=== PATIENT | male | born 1945 | race Caucasian/White ===

== ENCOUNTER 2017-03-08 08:32 | Day surgery (SDC) | payer MEDICARE, OTHER ==
[~2017-03-08 08:32] MED LIST: ACETAMINOPHEN 325 MG TABLET PO PRN; ACETYLCHOLINE CHLORIDE 20 DROP KIT IO PRN; BUPIVACAINE HCL/PF 30 ML VIAL IJ PRN; CYCLOPENTOLATE HCL 20 DROP BTL RIGHTEYE PRN; DEXTROSE 5%-0.5 NORMAL SALINE 1,000 ML IV PRN; EPINEPHrine 1 MG/ML AMPUL IO PRN; HYALURONATE SODIUM 0.4 ML DISP.SYRIN IO PRN; HYALURONATE SODIUM 0.85 ML DISP.SYRIN IO PRN; LIDOCAINE HCL/PF 200 MG/5 ML AMPUL TP PRN; LIDOCAINE HCL/PF 5 ML VIAL IO PRN; NORMAL SALINE 3 ML BOX IV PRN; TETRACAINE HCL 150 DROP BTL OP PRN
[2017-03-08] MEDS: TROPICAMIDE 150 DROP BTL RIGHTEYE PRN ×3 (09:00→09:25)
[2017-03-08] MEDS: PHENYLEPHRINE HCL 50 DROP BTL RIGHTEYE PRN ×3 (09:00→09:25)
[2017-03-08 11:42] VITALS: BP 113/72
== END 2017-03-08 08:33 | disposition home or self-care (01) ==
LOC: AMB 08:32
PROVIDERS: ATTEND Ophthalmology
PROC: 08RJ3JZ Replacement of Right Lens with Synthetic Substitute, Percutaneous Approach (ICD-10-PCS; principal; 2017-03-08 10:00)
DX: H26.8 Other specified cataract (principal); G35 Multiple sclerosis; Z68.26 Body mass index [BMI] 26.0-26.9, adult

== ENCOUNTER 2017-03-22 09:27 | Day surgery (SDC) | payer MEDICARE, MEDICAID ==
[~2017-03-22 09:27] MED LIST changes: +CYCLOPENTOLATE HCL 20 DROP BTL LEFTEYE PRN; -CYCLOPENTOLATE HCL 20 DROP BTL RIGHTEYE PRN; -HYALURONATE SODIUM 0.85 ML DISP.SYRIN IO PRN
[2017-03-22] MEDS: TROPICAMIDE 150 DROP BTL LEFTEYE PRN ×3 (10:00→10:41)
[2017-03-22] MEDS: PHENYLEPHRINE HCL 50 DROP BTL LEFTEYE PRN ×3 (10:00→10:41)
[2017-03-22] MEDS ORDERED: DEXTROSE 5%-0.5 NORMAL SALINE 1,000 ML IV ONE (10:24)
[2017-03-22] MEDS: HYALURONATE SODIUM 0.85 ML DISP.SYRIN IO PRN ×2 (11:21→11:34)
[2017-03-22 12:53] VITALS: BP 130/86
== END 2017-03-22 09:28 | disposition home or self-care (01) ==
LOC: AMB 09:27
PROVIDERS: ATTEND Ophthalmology
PROC: 08RK3JZ Replacement of Left Lens with Synthetic Substitute, Percutaneous Approach (ICD-10-PCS; principal; 2017-03-22 10:45)
DX: H26.8 Other specified cataract (principal); G35 Multiple sclerosis; Z68.26 Body mass index [BMI] 26.0-26.9, adult

== ENCOUNTER 2018-04-14 15:09 | Observation (INO) ==
[2018-04-14 15:33] LABS: Hemoglobin 17.1 gm/dL (13.5-18.0); Mean Cell Volume 96.7 fl (78-100); Mean Corpuscular Hemoglobin 31.2 pg (27-31); Mean Corpuscular Hgb Conc 32.3 g/dl (32-36); Platelet Count 238 K/mm3 (150-450); Red Blood Count 5.48 M/mm3 (4.7-6.0); Red Cell Distribution Width 13.9 % (11.5-14.0); White Blood Count 29.7 K/mm3 (4.0-10.5)
[2018-04-14 15:40] LABS: Total Cells Counted 100
[2018-04-14 15:55] LABS: ALT 11 U/L (19-67); AST 20 U/L (0-48); Alkaline Phosphatase * 105 U/L (50-170); Anion Gap 12.4 mmol/L (6.8-13.8); Bilirubin, Total 1.2 mg/dL (0.0-1.1); Blood Urea Nitrogen 16 mg/dL (6-23); Ca. Corrected For Albumin 8.9 mg/dL (8.4-10.2); Calcium * 8.4 mg/dL (7.9-10.9); Carbon Dioxide 24.4 mmol/L (24-32.6); Chloride 102 mmol/L (97-106); Glucose * 114 mg/dL (70-110); Potassium 3.8 mmol/L (3.4-4.6); Sodium 135 mmol/L (132-142); Total Protein 7.5 gm/dL (6.2-8.2)
[2018-04-14 15:56] LABS: Troponin I Less than 0.017 ng/mL (0.00-0.10)
[2018-04-14 16:02] LABS: Lymphocyte 11 % (20-51); Monocyte 11 % (0-9); Neutrophil 78 % (42-75); Neutrophil # 23.2 K/mm3 (1.3-6.0); Platelet Estimate Increased (NORMAL)
[2018-04-14 16:03] LABS: Anisocytosis Trace
[2018-04-14] MEDS ORDERED: NORMAL SALINE 1,000 ML IV ONE (16:12)
[2018-04-14] MEDS ORDERED: DILTIAZEM HCL 5 MG/ML VIAL IV ONE (17:05)
--- NOTE | 2018-04-14 17:11 | ERNOTE ---
Dyspnea - Date Date of Service: 04/14/18 - General Presenting Symptoms: difficulty of breathing Time Seen by Provider: 04/14/18 16:10 Source: patient, EMS, RN notes reviewed, [place] [facility] records, old records Exam Limitations: no limitations - Immun/Allergies/Home Medications Immunizations: IMMUNIZATION HX Immunizations Up to Date Yes Allergies/Adverse Reactions: Allergies morphine Adverse Reaction (Mild, Verified 02/23/18 15:09) "TIME GOES SLOW", hallucinations Home Medications: HOME MEDICATIONS Acetaminophen [Tylenol] 650 mg PO BID PRN 03/02/17 [Last Taken 03/07/17] Aspirin [Aspirin Enteric Coated] 650 mg PO QID PRN 03/02/17 [Last Taken ] nystatin 100,000 unit/gram topical powder 1 applic TP TID PRN 10/27/17 [Last Taken Unknown] clonazepam 1 mg tablet 3 mg PO DAILY tab 12/07/17 [Last Taken Unknown] docusate sodium 100 mg tablet 100 mg PO DAILY 12/23/17 [Last Taken Unknown] bisacodyl 5 mg tablet,delayed release 5 mg PO DAILY PRN #7 tab 02/25/18 [Last Taken Unknown] Chlorhexidine Gluconate [Peridex 0.12%] 15 ml MM BID 04/14/18 [Last Taken Unknown] Ibuprofen 400 mg PO PRN PRN 04/14/18 [Last Taken Unknown] Ipratropium/Albuterol Sulfate [Iprat-Albut 0.5-3(2.5) mg/3 ml] 3 ml INHALATION PRN PRN 04/14/18 [Last Taken Unknown] guaiFENesin [Mucinex] 1,200 mg PO BID 04/14/18 [Last Taken Unknown] - History of Present Illness Narrative: Pan is a 72 year old male brought to the ED by ambulance from the [place] for breathing difficulty. He is reported to have been cyanotic upon EMS arrival. This has resolved. The patient reports that he has had a cough, and that a CXR was done this morning. Those results are not available. He also reports feeling like he might have a urinary tract infection. 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 Absent: fever, chills EYE: Present: no symptoms reported ENT: Absent: nose congestion, sore throat Respiratory: Present: cough. Absent: shortness of breath Cardiology: Absent: chest pain, syncope Gastrointestinal/Abdominal: Absent: vomiting, diarrhea, abdominal pain Genitourinary: Present: frequency, dysuria Musculoskeletal: Present: no symptoms reported Skin: Absent: rash, lesions Neurological: Absent: headache, dizziness/light-headedness Endocrine: Present: no symptoms reported Hematologic/Lymphatic: Absent: easy bruising, easy bleeding Psych: Present: no symptoms reported Medical History (Last Reviewed 04/14/18 @ 17:10 by Rima Blount NP) Hepatitis C, chronic (Chronic) Anxiety (Chronic) Constipation (Acute) Multiple sclerosis (Chronic) Onset Date: Unknown Hepatitis C Onset Date: Unknown Surgical History: Surgical History (Last Reviewed 04/14/18 @ 17:10 by Rima Blount NP) H/O rectal polypectomy Onset Date: ~2013 H/O total hip arthroplasty Onset Date: Unknown History of esophagogastroduodenoscopy (EGD) Onset Date: ~2013 History of tonsillectomy Onset Date: Unknown Unspecified joint replacement by other means Onset Date: Unknown Family History: Family History (Last Updated 04/14/18 @ 17:19 by Harsha Alvarez RN) Other No pertinent family history Social History: Preferred Language Guyanese Do you have any nondenominational or No cultural preference? Smoking Status Never smoker Abuse History No History of abuse Psych History No pertinent hx (Last Updated 02/23/18 @ 15:14 by ARAM Hale) No Social History Section defined Physical Exam - Physical Exam General Appearance: Present: wd/wn, alert, no apparent distress Head Exam: Present: normal inspection Eye Exam: Normal inspection: bilateral Ears, Nose, Throat: Present: normal ENT inspection, normal pharynx Neck: Present: normal inspection, nontender, supple Respiratory: Present: no respiratory distress, no accessory muscle use, lungs clear, decreased breath sounds - bilateral bases Cardiovascular/Chest: Present: no murmur, normal peripheral pulses, tachycardia, irregularly irregular Gastrointestinal/Abdominal: Present: nontender, nondistended, soft Extremity Exam: Present: normal inspection, non-tender Neurological Exam: Present: alert, oriented, normal mood/affect. Absent: no motor/sensory deficits - lower extremity weakness, chronic Skin Exam: Present: normal color, warm/dry Progress - Results and Orders Patient's Lab Results:: I have reviewed the patient's lab results. - Vital Signs Patient's Vital Signs:: I have reviewed the patient's vital signs. Vital Signs: Vital Signs 04/14/18 15:11 04/14/18 15:41 04/14/18 16:10 Temperature 37.3 C Pulse Rate 93 128 H 115 H Respiratory Rate 22 H 42 H 43 H Blood Pressure 99/75 117/82 O2 Sat by Pulse Oximetry 94 94 94 04/14/18 16:11 Temperature Pulse Rate 124 H Respiratory Rate Blood Pressure O2 Sat by Pulse Oximetry - EKG EKG: atrial fibrillation - with RVR - Progress/Reassessment Chief Complaint: Dyspnea Progress:: Improved Plan - Plan Plan: The patient's condition had apparently improved on arrival from what the EMS personnel had described initially. He has had no respiratory distress, but he was found to be in Afib with RVR. There is no prior record of him having Afib. He was given Cardizem 20 mg IVP for this. He remains in Afib but now has a rate in the 90's. He does have a UTI and is receiving IV Levaquin. His chest xray results are unclear due to its poor quality. His WBC is markedly elevated at 29,200 but he has a normal lactic acid. Dr. Perez was contacted and the patient will be admitted to observation status. Departure Clinical Impression: New onset atrial fibrillation UTI (urinary tract infection) Qualifiers: Urinary tract infection type: site unspecified Hematuria presence: without hematuria Qualified Code(s): N39.0 - Urinary tract infection, site not specified - Departure Disposition: Still a patient Condition: Stable
[2018-04-14 18:01] LABS: Urine Bilirubin Negative (NEGATIVE); Urine Blood 250 /ul (NEGATIVE); Urine Ketone 50 mg/dL (NEGATIVE); Urine Protein 100 mg/dL (NEGATIVE); Urine Urobilinogen Normal (NORMAL); Urine pH 8.5 pH (5.0-7.0)
[2018-04-14 18:28] LABS: Urine Appearance Cloudy (CLEAR); Urine Color Amber; Urine Nitrite Positive (NEGATIVE)
[2018-04-14 18:30] LABS: Urine Bacteria 4+
[2018-04-14] MEDS ORDERED: LEVOFLOXACIN IN DEXTROSE 5 % 750 MG/150 ML BAG IV ONE (19:34)
[2018-04-14] MEDS ORDERED: clonazePAM 1 MG TABLET PO SCH (23:45)
[2018-04-15 08:20] VITALS: BP 105/72
--- NOTE | 2018-04-15 12:07 | HP ---
Chief Complaint - Chief Complaint Date of Service: 04/15/18 Time of Service: 08:30 Chief Complaint: Shortness of breath History of Present Illness: Pan is a 72 yo male, resident of the long term. He has been having shortness of breath for the last several days. He was treated for presumed bronchitis with antibiotics. Today with worsening shortness of breath he presented to the [facility] ER and was found to be in atrial fibrillation which is new. There have been no other recent changes in health, medication, or diet. Medical History (Last Reviewed 04/21/18 @ 14:36 by ARAM Hale) Atrial fibrillation (Chronic) Hepatitis C, chronic (Chronic) Anxiety (Chronic) Constipation (Acute) Multiple sclerosis (Chronic) Onset Date: Unknown Lyme disease, unspecified Muscle weakness (generalized) Hepatitis C Onset Date: Unknown Surgical History: Surgical History (Last Reviewed 04/21/18 @ 14:36 by ARAM Hale) H/O rectal polypectomy Onset Date: ~2013 H/O total hip arthroplasty Onset Date: Unknown History of esophagogastroduodenoscopy (EGD) Onset Date: ~2013 History of tonsillectomy Onset Date: Unknown Unspecified joint replacement by other means Onset Date: Unknown Family History: Family History (Last Reviewed 04/21/18 @ 14:36 by ARAM Hale) Other No pertinent family history Social History: Patient Lives/Resources [facility] Utilized Occupation retired Preferred Language Kenyan Do you have any synagogue or No cultural preference? Smoking Status Never smoker Have you smoked in the past 12 No months Abuse History No History of abuse Psych History No pertinent hx (Last Updated 02/23/18 @ 15:14 by ARAM Hale) No Social History Section defined Review Of Systems (GEN) - Review of Systems Generalized/Overall Review: Absent: Weakness, Chills, Fever EENTM: Present: No Symptoms Reported Respiratory: Present: Cough, Shortness of Breath Cardiac: Present: Palpitations. Absent: Chest Pain, Edema Abdominal: Absent: Nausea, Vomiting Genitourinary: Present: No Symptoms Reported Musculoskeletal: Present: No Symptoms Reported Neurological: Present: No Symptoms Reported Skin: Present: No Symptoms Reported Immunizations: IMMUNIZATION HX Immunizations Up to Date Yes Allergies/Adverse Reactions: Allergies Allergy/AdvReac Type Severity Reaction Status Date / Time morphine AdvReac Mild "TIME GOES Verified 04/21/18 14:31 SLOW", hallucinations Home Medications: HOME MEDICATIONS Aspirin [Aspirin Enteric Coated] 650 mg PO QID PRN 03/02/17 [Last Taken 03/07/17] nystatin 100,000 unit/gram topical powder 1 applic TP TID PRN 10/27/17 [Last Taken Unknown] docusate sodium 100 mg tablet 100 mg PO DAILY 12/23/17 [Last Taken Unknown] bisacodyl 5 mg tablet,delayed release 5 mg PO DAILY PRN #7 tab 02/25/18 [Last Taken Unknown] Chlorhexidine Gluconate [Peridex 0.12%] 15 ml MM BID 04/14/18 [Last Taken Unknown] Ibuprofen 400 mg PO QID PRN 04/14/18 [Last Taken Unknown] Ipratropium/Albuterol Sulfate [Iprat-Albut 0.5-3(2.5) mg/3 ml] 3 ml INHALATION PRN PRN 04/14/18 [Last Taken Unknown] guaiFENesin [Mucinex] 1,200 mg PO BID 04/14/18 [Last Taken Unknown] clonazePAM [Klonopin] 3 mg PO HS tab 04/15/18 [Last Taken Unknown] acetaminophen 325 mg tablet 650 mg PO BID PRN tab 04/21/18 [Last Taken Unknown] Exam - Exam Vital Signs: Vital Signs - Last Taken Temp 37.4 C 04/15/18 09:08 Pulse 89 04/15/18 09:08 Resp 20 04/15/18 09:08 BP 105/72 04/15/18 09:08 Pulse Ox 91 L 04/15/18 09:08 Constitutional: Present: Alert, Oriented x3, Cooperative ENT Exam: Present: hearing grossly normal Eye Exam: bilateral eye: normal inspection Respiratory: Present: lungs clear, normal breath sounds Cardiovascular/Chest: Present: regular rate, rhythm, no murmur Abdomen: Present: Normal bowel sounds, soft, nontender, nondistended Skin Exam: Present: normal color, warm/dry, no cyanosis Lymphatic: Present: no adenopathy Appearance: Present: appropriate appearance, appropriate insight Eye contact: Present: cooperative, good eye contact, normal speech Diagnostic Studies: Abnormal Lab Results 04/14/18 04/14/18 04/14/18 Range/Units 15:25 15:25 17:51 WBC 29.7 H (4.0-10.5) K/mm3 Hct 53.0 H (42.0-52.0) % MCH 31.2 H (27-31) pg Neutrophils % (Manual) 78 H (42-75) % Lymphocytes % (Manual) 11 L (20-51) % Monocytes % (Manual) 11 H (0-9) % Neutrophils # (Manual) 23.2 H (1.3-6.0) K/mm3 Monocytes # (Manual) 3.3 H (0.0-1.0) k/mm3 Platelet Estimate Increased H (NORMAL) D-Dimer (0.19-0.49) ug/mL Random Glucose 114 H (70-110) mg/dL Total Bilirubin 1.2 H (0.0-1.1) mg/dL ALT 11 L (19-67) U/L Albumin 3.0 L (3.4-5.0) gm/dl Urine Protein 100 H (NEGATIVE) mg/dL Urine Blood 250 H (NEGATIVE) /ul Urine Nitrate Positive H (NEGATIVE) Prot Sulfosalicylic Acd 3+ H (0) mg/dL Ur Leukocyte Esterase 75 H (NEGATIVE) /ul Urine RBC 10-25 H (0-5) /hpf Urine WBC 5-10 H (0-5) /hpf Uric Acid Crystals Few - 1+ H (NONE) /hpf Urine Bacteria 4+ H (NONE) 04/14/18 Range/Units 18:09 WBC (4.0-10.5) K/mm3 Hct (42.0-52.0) % MCH (27-31) pg Neutrophils % (Manual) (42-75) % Lymphocytes % (Manual) (20-51) % Monocytes % (Manual) (0-9) % Neutrophils # (Manual) (1.3-6.0) K/mm3 Monocytes # (Manual) (0.0-1.0) k/mm3 Platelet Estimate (NORMAL) D-Dimer 0.50 H (0.19-0.49) ug/mL Random Glucose (70-110) mg/dL Total Bilirubin (0.0-1.1) mg/dL ALT (19-67) U/L Albumin (3.4-5.0) gm/dl Urine Protein (NEGATIVE) mg/dL Urine Blood (NEGATIVE) /ul Urine Nitrate (NEGATIVE) Prot Sulfosalicylic Acd (0) mg/dL Ur Leukocyte Esterase (NEGATIVE) /ul Urine RBC (0-5) /hpf Urine WBC (0-5) /hpf Uric Acid Crystals (NONE) /hpf Urine Bacteria (NONE) Microbiology 04/14/18 17:51 Urine Culture - Preliminary Urine,Clean Catch Gram Negative Bacilli Laboratory Results WBC 29.7 K/mm3 (4.0-10.5) H 04/14/18 15:25 RBC 5.48 M/mm3 (4.7-6.0) 04/14/18 15:25 Hgb 17.1 gm/dL (13.5-18.0) 04/14/18 15:25 Hct 53.0 % (42.0-52.0) H 04/14/18 15:25 MCV 96.7 fl (78-100) 04/14/18 15:25 MCH 31.2 pg (27-31) H 04/14/18 15:25 MCHC 32.3 g/dl (32-36) 04/14/18 15:25 RDW 13.9 % (11.5-14.0) 04/14/18 15:25 Plt Count 238 K/mm3 (150-450) 04/14/18 15:25 MPV 10.0 fl (8-11.3) 04/14/18 15:25 Neutrophils % (Manual) 78 % (42-75) H 04/14/18 15:25 Lymphocytes % (Manual) 11 % (20-51) L 04/14/18 15:25 Monocytes % (Manual) 11 % (0-9) H 04/14/18 15:25 Neutrophils # (Manual) 23.2 K/mm3 (1.3-6.0) H 04/14/18 15:25 Lymphocytes # (Manual) 3.3 k/mm3 (1.5-3.5) 04/14/18 15:25 Monocytes # (Manual) 3.3 k/mm3 (0.0-1.0) H 04/14/18 15:25 Platelet Estimate Increased (NORMAL) H 04/14/18 15:25 Anisocytosis Trace 04/14/18 15:25 D-Dimer 0.50 ug/mL (0.19-0.49) H 04/14/18 18:09 Sodium 135 mmol/L (132-142) 04/14/18 15:25 Plasma Sodium 135 mmol/L (130-142) 04/14/18 15:25 Potassium 3.8 mmol/L (3.4-4.6) 04/14/18 15:25 Chloride 102 mmol/L (97-106) 04/14/18 15:25 Carbon Dioxide 24.4 mmol/L (24-32.6) 04/14/18 15:25 Anion Gap 12.4 mmol/L (6.8-13.8) 04/14/18 15:25 BUN 16 mg/dL (6-23) 04/14/18 15:25 Creatinine 0.84 mg/dL (0.4-1.4) 04/14/18 15:25 Est GFR (Non-Af Amer) 96 mL/min (60-130) D 04/14/18 15:25 BUN/Creatinine Ratio 19.0 (9.0-21.6) 04/14/18 15:25 Random Glucose 114 mg/dL (70-110) H 04/14/18 15:25 Lactic Acid, Venous 1.3 mmol/L (0.4-2.0) 04/14/18 16:11 Calcium 8.4 mg/dL (7.9-10.9) 04/14/18 15:25 Calcium Adj for Albumin 8.9 mg/dL (8.4-10.2) 04/14/18 15:25 Total Bilirubin 1.2 mg/dL (0.0-1.1) H 04/14/18 15:25 AST 20 U/L (0-48) 04/14/18 15:25 ALT 11 U/L (19-67) L 04/14/18 15:25 Alkaline Phosphatase 105 U/L (50-170) 04/14/18 15:25 Troponin I Less than 0.017 ng/mL (0.00-0.10) 04/14/18 15:25 Total Protein 7.5 gm/dL (6.2-8.2) 04/14/18 15:25 Albumin 3.0 gm/dl (3.4-5.0) L 04/14/18 15:25 Urine Color Isatu 04/14/18 17:51 Urine Appearance Cloudy (CLEAR) 04/14/18 17:51 Urine pH 8.5 pH (5.0-7.0) 04/14/18 17:51 Ur Specific [place] 1.020 SP.GR. (1.005-1.030) 04/14/18 17:51 Urine Protein 100 mg/dL (NEGATIVE) H 04/14/18 17:51 Urine Glucose (UA) Negative mg/dL (NEGATIVE) 04/14/18 17:51 Urine Ketones 50 mg/dL (NEGATIVE) 04/14/18 17:51 Urine Blood 250 /ul (NEGATIVE) H 04/14/18 17:51 Urine Nitrate Positive (NEGATIVE) H 04/14/18 17:51 Urine Bilirubin Negative mg/dl (NEGATIVE) 04/14/18 17:51 Prot Sulfosalicylic Acd 3+ mg/dL (0) H 04/14/18 17:51 Urine Urobilinogen Normal EU/dl (NORMAL) 04/14/18 17:51 Ur Leukocyte Esterase 75 /ul (NEGATIVE) H 04/14/18 17:51 Urine RBC 10-25 /hpf (0-5) H 04/14/18 17:51 Urine WBC 5-10 /hpf (0-5) H 04/14/18 17:51 Ur Epithelial Cells None seen /hpf (0-5) 04/14/18 17:51 Uric Acid Crystals Few - 1+ /hpf (NONE) H 04/14/18 17:51 Urine Bacteria 4+ (NONE) H 04/14/18 17:51 Urine Culture Comments Culture to follow 04/14/18 17:51 Assessment/Plan - Narrative Narrative: Pan is a 72 yo male with atrial fibrillation causing shortness of breath. He may have had atrial fibrillation for the past several days. He is not a candidate for cardioversion. Since arriving to floor it appears that he may have converted to normal sinus rhythm. Will monitor on telemetry in observation. If remains in sinus rhythm will discharge to home. - Assessment/Plan (1) New onset atrial fibrillation Problem: Resolved
--- NOTE | 2018-04-15 12:34 | DS ---
(1) New onset atrial fibrillation Problem: Resolved (2) UTI (urinary tract infection) Problem: Acute Qualifiers: Urinary tract infection type: site unspecified Hematuria presence: without hematuria Qualified Code(s): N39.0 - Urinary tract infection, site not specified (3) Hepatitis C, chronic Problem: Chronic Qualifiers: Hepatic coma status: without hepatic coma Qualified Code(s): B18.2 - Chronic viral hepatitis C (4) Multiple sclerosis Problem: Chronic Description of Stay: Pan is a 72 yo male with MS who was admitted for new onset atrial fibrillation with RVR. He was given IV diltiazem in the ER which improved his heart rate and it remained normal. Following the administration of diltiazem he was admitted to observation to see if his heart rate would remain stable. It did and at approximately 0530 on 04/15/18 he converted to normal sinus rhythm. He feels well and has no current symptoms. Urine collected in the ER is growing gram negative rods. He was given a dose of levaquin in the ER. Will continue this for a total of 5 days. Procedures Performed: none Results and Findings: Pending Mircobiology Results 04/14/18 17:51 Urine,Clean Catch Urine Culture - Preliminary Gram Negative Bacilli Lab Pending Results 04/14/18 15:25: WBC 29.7 H, RBC 5.48, Hgb 17.1, Hct 53.0 H, MCV 96.7, MCH 31.2 H, MCHC 32.3, RDW 13.9, Plt Count 238, MPV 10.0, Neutrophils % (Manual) 78 H, Lymphocytes % (Manual) 11 L, Monocytes % (Manual) 11 H, Neutrophils # (Manual) 23.2 H, Lymphocytes # (Manual) 3.3, Monocytes # (Manual) 3.3 H, Platelet Estimate Increased H, Anisocytosis Trace 04/14/18 15:25: Sodium 135, Plasma Sodium 135, Potassium 3.8, Chloride 102, Carbon Dioxide 24.4, Anion Gap 12.4, BUN 16, Creatinine 0.84, Est GFR (Non-Af Amer) 96 D, BUN/Creatinine Ratio 19.0, Random Glucose 114 H, Calcium 8.4, Calcium Adj for Albumin 8.9, Total Bilirubin 1.2 H, AST 20, ALT 11 L, Alkaline Phosphatase 105, Troponin I Less than 0.017, Total Protein 7.5, Albumin 3.0 L 04/14/18 16:11: Lactic Acid, Venous 1.3 04/14/18 17:51: Urine Color Isatu, Urine Appearance Cloudy, Urine pH 8.5, Ur Specific [place] 1.020, Urine Protein 100 H, Urine Glucose (UA) Negative, Urine Ketones 50, Urine Blood 250 H, Urine Nitrate Positive H, Urine Bilirubin Negative, Prot Sulfosalicylic Acd 3+ H, Urine Urobilinogen Normal, Ur Leukocyte Esterase 75 H, Urine RBC 10-25 H, Urine WBC 5-10 H, Ur Epithelial Cells None seen, Uric Acid Crystals Few - 1+ H, Urine Bacteria 4+ H, Urine Culture Comments Culture to follow 04/14/18 18:09: D-Dimer 0.50 H Discharge Location: [facility] Disposition: Intermediate Care Facility ICF Condition: Good Level of Care: ICF Problem Oriented Discharge Instructions to Patient/Family: Atrial Fibrillation, [id number] Additional Patient Instructions (free text): Please call and fax discharge information to [facility]. Resume prior oxygen orders. Resume all prior orders. Prescriptions (Any new or edited meds): Levofloxacin [Levaquin] 500 mg PO DAILY #4 tablet Complete Home Medications List: Complete Home Medication List: Acetaminophen [Tylenol] 650 mg PO BID PRN 03/02/17 Aspirin [Aspirin Enteric Coated] 650 mg PO QID PRN 03/02/17 nystatin 100,000 unit/gram topical powder 1 applic TP TID PRN 10/27/17 clonazepam 1 mg tablet 3 mg PO DAILY tab 12/07/17 docusate sodium 100 mg tablet 100 mg PO DAILY 12/23/17 bisacodyl 5 mg tablet,delayed release 5 mg PO DAILY PRN #7 tab 02/25/18 Chlorhexidine Gluconate [Peridex 0.12%] 15 ml MM BID 04/14/18 Ibuprofen 400 mg PO QID PRN 04/14/18 Ipratropium/Albuterol Sulfate [Iprat-Albut 0.5-3(2.5) mg/3 ml] 3 ml INHALATION PRN PRN 04/14/18 guaiFENesin [Mucinex] 1,200 mg PO BID 04/14/18 Levofloxacin [Levaquin] 500 mg PO DAILY #4 tablet 04/15/18 clonazePAM [Klonopin] 3 mg PO HS tablet 04/15/18
== END 2018-04-15 13:50 ==
LOC: MS 15:09 → ER 15:09 → MS 20:27
PROVIDERS: ADMIT Family Medicine; ATTEND Family Medicine
CPT/HCPCS: 36415; 71010; 71045; 80053; 81001; 83605; 84484; 85025; 85379; 87040; 87077; 87081; 87086; 87186; 93005; 94760; 96365; 96366; 96375; 99285; G0378

== ENCOUNTER 2020-08-29 16:29 | Inpatient (IN) ==
--- NOTE | 2020-08-29 17:12 | ERNOTE ---
Medical Problem HPI - Narrative Date of Service: 08/29/20 - General Chief Complaint: Fever Time Seen by Provider: 08/29/20 16:59 Source: patient, EMS, RN notes reviewed Exam Limitations: clinical condition, dementia - Immun/Allergies/Home Medications Immunizations: IMMUNIZATION HX Immunizations Up to Date Yes History of Influenza Vaccine Yes Hx Pneumococcal Vaccination Yes Allergies/Adverse Reactions: Allergies morphine Adverse Reaction (Mild, Verified 08/29/20 16:42) "TIME GOES SLOW", hallucinations Home Medications: HOME MEDICATIONS Aspirin [Aspirin Enteric Coated] 650 mg PO QID PRN 03/02/17 [Last Taken 03/07/17] nystatin 100,000 unit/gram topical powder 1 applic TP TID PRN 10/27/17 [Last Taken Unknown] docusate sodium 100 mg tablet 100 mg PO DAILY 12/23/17 [Last Taken Unknown] bisacodyl 5 mg tablet,delayed release 5 mg PO DAILY PRN #7 tab 02/25/18 [Last Taken Unknown] Chlorhexidine Gluconate [Peridex 0.12%] 15 ml MM BID 04/14/18 [Last Taken Unknown] polyethylene glycol 3350 17 gram/dose oral powder 17 g PO DAILY #238 g 06/07/18 [Last Taken Unknown] amoxicillin 500 mg capsule 2,000 mg PO ONCE cap 07/08/18 [Last Taken Unknown] fluticasone furoate 100 mcg-vilanterol 25 mcg/dose inhalation powder 1 inh IH DAILY #28 ea 01/12/19 [Last Taken Unknown] ipratropium 20 mcg-albuterol 100 mcg/actuation mist for inhalation 1 puff IH QID PRN g 03/17/19 [Last Taken Unknown] cholecalciferol (vitamin D3) 125 mcg (5,000 unit) capsule 125 mcg PO DAILY #30 cap 08/25/19 [Last Taken Unknown] gabapentin 400 mg capsule 400 mg PO HS #30 cap 12/06/19 [Last Taken Unknown] meloxicam 7.5 mg tablet 7.5 mg PO DAILY #30 tab 06/20/20 [Last Taken Unknown] atorvastatin 20 mg tablet 20 mg PO HS #30 tab 07/03/20 [Last Taken Unknown] metoprolol succinate 25 mg tablet,extended release 24 hr 25 mg PO DAILY #30 tab 07/03/20 [Last Taken Unknown] acetaminophen 325 mg tablet 650 mg PO BID #120 tab 07/04/20 [Last Taken Unknown] clonazepam 1 mg tablet 3 mg PO HS #90 tab 07/25/20 [Last Taken Unknown] modafinil 100 mg tablet 100 mg PO DAILY #1 tab 07/29/20 [Last Taken Unknown] cyanocobalamin (vitamin B-12) 1,000 mcg tablet 1,000 mcg PO DAILY #1 tab 08/15/20 [Last Taken Unknown] Aspirin 625 mg PO HS 08/30/20 [Last Taken Unknown] Cholecalciferol (Vitamin D3) [Vitamin D3] 125 mcg PO DAILY 08/30/20 [Last Taken Unknown] - History of Present History Narrative: Pan is a 75 yo male patient with hx of MS, COPD w/asthma who has been brought in to the ER by EMS from [facility] for concerns that he is febrile and more lethargic than his normal self and has c/o abdominal pain. Reported negative covid rapid test prior to leaving the facility today. Pt. also has hx of Chronic Hepatitis C infection. He states he feels achiness in his arms and legs and feeling very tired. Pt. denies abdominal pain, chest pain, MCLAIN, N/V/D. States is he is a total assist and incontinent of stool and urine r/t his MS. Patient also states that it is difficult for him to urinate well. Date (Duration): 08/29/20 Time (Timing): 08:00 Timing: getting worse Severity: moderate Modifying Factors - (Improves): Present: other - unknown Modifying Factors - (Worsens): Present: other - unknown. Review of Systems - Review of Systems Constitutional: Present: See HPI, fever, fatigue, decreased activity level. Absent: recent illness EYE: Absent: vision changes ENT: Absent: sore throat Respiratory: Present: wheezing. Absent: shortness of breath - COPD, cough Cardiology: Present: edema. Absent: chest pain Gastrointestinal/Abdominal: Present: other - Hx Hep C. Absent: nausea, vomiting, diarrhea, abdominal pain Genitourinary: Present: dysuria, other - states he has trouble urinating. Musculoskeletal: Present: other - weakness, MS Skin: Absent: rash, lesions, change in color Neurological: Present: anxiety Endocrine: Present: See HPI. Absent: excessive sweating Hematologic/Lymphatic: Absent: easy bruising, easy bleeding Psych: Present: anxiety, depressed, other Medical History (Last Reviewed 08/29/20 @ 21:42 by Cathy Pereyra RN) Ascending aortic aneurysm (Acute) Onset Date: ~06/2020 To be monitored annually-Due in June 2021. Vitamin D deficiency (Chronic) COPD with asthma (Acute) Wheezing on auscultation (Acute) Hammer toes, bilateral (Chronic) Toe pain, bilateral (Acute) Toenail avulsion (Acute) left third toenail Extremity cyanosis (Chronic) bilateral feet Bilateral lower extremity edema (Chronic) Onychomycosis (Chronic) New onset atrial fibrillation (Resolved) UTI (urinary tract infection) (Acute) Atrial fibrillation (Chronic) Hepatitis C, chronic (Chronic) Anxiety (Chronic) Constipation (Chronic) Multiple sclerosis (Chronic) Onset Date: Unknown Lyme disease, unspecified Muscle weakness (generalized) Hepatitis C Onset Date: Unknown Surgical History: Surgical History (Last Reviewed 08/29/20 @ 21:43 by Cathy Pereyra RN) H/O rectal polypectomy Onset Date: ~2013 H/O total hip arthroplasty Onset Date: Unknown History of esophagogastroduodenoscopy (EGD) Onset Date: ~2013 History of tonsillectomy Onset Date: Unknown Unspecified joint replacement by other means Onset Date: Unknown Family History: Family History (Last Reviewed 08/29/20 @ 21:43 by Cathy Pereyra RN) No pertinent family history Social History: (Last Updated 08/29/20 @ 21:45 by Cathy Pereyra RN) Social History: shelter: Yes Marital status: / Highest level of school completed/degree received: Associate degree: academi Tobacco: Smoking Status: Former smoker Physical Exam - Physical Exam General Appearance: Present: wd/wn, alert, no apparent distress. Absent: anxious, lethargic Head Exam: Present: normal inspection, no evidence of injury. Absent: no tenderness w palpation Eye Exam: Normal inspection: bilateral, PERRL: bilateral Ears, Nose, Throat: Present: normal ENT inspection, normal pharynx, dry mucous membranes Neck: Present: normal inspection, nontender, supple, full range of motion Respiratory: Present: no respiratory distress, no accessory muscle use, chest nontender, other - coarse Right lobes x3, Diminished bases A/P Cardiovascular/Chest: Present: normal peripheral pulses, other - A-Fib 120's Peripheral Pulses: N=norm/S=strong/W=weak/B=bound/A=absent: Carotid (R): Normal, Carotid (L): Normal, Radial (R): Normal, Radial (L): Normal, Dorsalis-pedis (R): Weak, Dorsalis-pedis (L): Weak Gastrointestinal/Abdominal: Present: normal bowel sounds, nontender, nondisten ded, soft Rectal Exam: Absent: mass Male Genitals Exam: Present: normal genitalia, other - noted small amount blood at meatus when nursing staff went to catheterize patient for UA and catheter placement. 600mL cloudy orange urine drained at time of UA sample Back Exam: Present: normal inspection, no CVA tenderness Extremity Exam: Present: extremity edema - generalized 2+ non-pitting edema to bilateral lower legs. Absent: joint redness, joint swelling Neurological Exam: Present: alert, motor weakness, disoriented to time Skin Exam: Present: normal color, warm/dry. Absent: jaundice, skin rash Progress - Date and Time Seen: Date and Time: 08/29/20 18:30 Patient less talkative, denies any pain at this time. BP systolic reported 70 per nursing staff s/p straight cath UA specimen that was clotty and orange in color. HR 107, MAP 77 (94/66), SpO2 94%, RR 15. IVF increased to 500/hr. - Results and Orders Patient's Lab Results:: I have reviewed the patient's lab results. - Vital Signs Patient's Vital Signs:: I have reviewed the patient's vital signs. Vital Signs: Vital Signs 08/29/20 16:39 Temperature 38 C Pulse Rate 127 H Respiratory Rate 20 Blood Pressure 123/79 O2 Sat by Pulse Oximetry 92 L - EKG EKG #1 EKG: atrial fibrillation - with rapid ventricular response EKG read: Reviewed by me - X-Ray X-Ray #1 X-Ray: chest Interpretation: Reviewed by me - Progress/Reassessment Chief Complaint: Fever Progress:: Re-examined - 1900 MAP 74, SpO2 95%, HR 105, 20RR, IVF @ 500mL/Hr 1940 Patient lungs improved with increased air movement and lung sounds A/P/L bilaterally Plan - Plan Plan: DDx: Sepsis/SIRS, Pneumonia, COPD Exacerbation, Pyelonephritis. Patient presentation demonstrates decreased interaction during ER stay with Fever and UTI and per reports of care facility staff that is reflective of his WBC 37.7, BNP 1135, CRP 6.5, Pro-Calcitonin 2.4. NS fluid bolus 1 liter per EMS and 2nd liter at 250mL to 500mL to a total volume to be infused of at least 2,430mL for sepsis protocol. Ceftriaxone 1gm ordered for pulmonary or urinary source. 192 Patient MAP 70-80 w/IVF at 250mL. 1929 Dr. Dawson accepted for admission 2100 Covid results returned negative, Sepsis IVF bolus infused and returned to maintenance rate 126/hr. Admission orders completed with repeat doses of ceftriaxone 1 gm every 24hours placed per request of Dr. Dawson and Sepsis Reassessment completed. Departure Clinical Impression: Sepsis associated hypotension, Urinary retention UTI (urinary tract infection) Qualifiers: Urinary tract infection type: site unspecified Hematuria presence: with hematuria Qualified Code(s): N39.0 - Urinary tract infection, site not specified - Departure Disposition: Still a patient Condition: Stable Sepsis Reassessment Note Time:: 21:00 - Patient HR 70's, no distress, Oriented to person & place. Narrative: Last Vital Signs Temp 38 C 08/29/20 16:42 Pulse 127 H 08/29/20 16:42 Resp 20 08/29/20 16:42 BP 123/79 08/29/20 16:42 Pulse Ox 92 L 08/29/20 16:42 Vitals reviewed: Yes - MAP 70 at 2100 Heart Sounds: S1 & S2, Irregular Breath Sounds: Clear - bilaterally, improved from arrival to ER, Diminished Peripheral Pulse: Radial Peripheral Pulse Strength: Normal Additional Peripheral Pulse: Pedal Additional Peripheral Pulse Strength: Weak Capillary Refill: < 3 seconds Skin Color/Condition: Dry, Cool, Pale
[2020-08-29] MEDS: NORMAL SALINE 1,000 ML IV SCH ×2 (17:15→23:48)
[2020-08-29 17:50] LABS: Hematocrit 47.7 % (42.0-52.0); Mean Cell Volume 102.1 fl (78-100); Mean Corpuscular Hemoglobin 32.1 pg (27-31); Mean Corpuscular Hgb Conc 31.4 g/dl (32-36); Mean Platelet Volume 10.3 fl (8-11.3); Platelet Count 186 K/mm3 (150-450); Red Blood Count 4.67 M/mm3 (4.7-6.0); Red Cell Distribution Width 13.8 % (11.5-14.0); White Blood Count 32.7 K/mm3 (4.0-10.5)
[2020-08-29 17:56] LABS: Total Cells Counted 100
[2020-08-29 18:11] LABS: Albumin * 3.1 gm/dl (3.4-5.0); Anion Gap 13.5 mmol/L (6.8-13.8); BUN/Creatinine Ratio 19.3 (9.0-21.6); Bilirubin, Total 0.6 mg/dL (0.0-1.1); CRP 6.5 mg/dL (0.0-0.9); Ca. Corrected For Albumin 8.8 mg/dL (8.4-10.2); Calcium * 8.4 mg/dL (7.9-10.9); Carbon Dioxide 29.3 mmol/L (24-32.6); Potassium 3.8 mmol/L (3.4-4.6); Total Protein 6.6 gm/dL (6.2-8.2)
[2020-08-29] MEDS ORDERED: cefTRIAXone SODIUM 1,000 MG/100 ML BAG IV ONE (18:33)
[2020-08-29 18:37] LABS: Anisocytosis Trace; Band 25 % (0-2.0); Eosinophil 1 % (0-3); Lymphocyte 3 % (20-51); Monocyte 1 % (0-9); Neutrophil 70 % (42-75); Neutrophil # 22.9 K/mm3 (1.3-6.0); Platelet Estimate Normal (NORMAL)
[2020-08-29] MEDS ORDERED: NORMAL SALINE 1,000 ML IV SCH (19:24)
[2020-08-29 19:54] LABS: Urine Bilirubin Negative (NEGATIVE); Urine Ketone 5 mg/dL (NEGATIVE); Urine Nitrite Negative (NEGATIVE); Urine Protein Negative (NEGATIVE); Urine Urobilinogen Normal (NORMAL)
[2020-08-29 20:09] LABS: Urine Appearance Cloudy (CLEAR); Urine Bacteria 4+; Urine Blood 5 /ul (NEGATIVE); Urine Color Yellow; Urine RBC 0-5 /hpf (0-5); Urine WBC 0-5 /hpf (0-5)
[2020-08-29] MEDS: NORMAL SALINE 1,000 ML IV PRN (21:00)
[2020-08-30] MEDS: NORMAL SALINE 1,000 ML IV PRN (02:16)
[2020-08-30] MEDS: ACETAMINOPHEN 500 MG TABLET PO PRN (05:08)
[2020-08-30] MEDS: METOPROLOL SUCCINATE 25 MG TABLET.SA PO SCH ×2 (06:20→08:11)
[2020-08-30 06:48] LABS: Hematocrit 43.7 % (42.0-52.0); Hemoglobin 13.7 gm/dL (13.5-18.0); Mean Cell Volume 101.4 fl (78-100); Mean Corpuscular Hemoglobin 31.8 pg (27-31); Mean Corpuscular Hgb Conc 31.4 g/dl (32-36); Mean Platelet Volume 10.5 fl (8-11.3); Neutrophil # 15.8 K/mm3 (1.3-6.0); Neutrophil % 88.9 % (42-75.0); Platelet Count 162 K/mm3 (150-450); Red Blood Count 4.31 M/mm3 (4.7-6.0); White Blood Count 17.7 K/mm3 (4.0-10.5)
[2020-08-30 06:53] LABS: Albumin * 2.7 gm/dl (3.4-5.0); Anion Gap 11.3 mmol/L (6.8-13.8); BUN/Creatinine Ratio 19.7 (9.0-21.6); Bilirubin, Total 0.5 mg/dL (0.0-1.1); Calcium * 7.3 mg/dL (7.9-10.9); Carbon Dioxide 26.4 mmol/L (24-32.6); Potassium 3.7 mmol/L (3.4-4.6); Total Protein 6.1 gm/dL (6.2-8.2)
[2020-08-30] MEDS ORDERED: NYSTATIN 15 APPL BTL TP PRN (08:11)
[2020-08-30] MEDS ORDERED: ALBUTEROL SULFATE/IPRATROPIUM 3 ML NEBU IH PRN (08:34)
--- NOTE | 2020-08-30 09:44 | HP ---
Chief Complaint - Chief Complaint Date of Service: 08/30/20 Time of Service: 08:17 Chief Complaint: Fever History of Present Illness: 75-year-old male with a past medical history of anxiety, atrial fibrillation, constipation, COPD with asthma, hepatitis C, Lyme disease, multiple sclerosis, UTI presents from the [facility] with complaints of fever and worsening weakness. In the ER, the patient was found to have a fever of 39.1, tachycardia of 127, tachypnea of 24 and normal blood pressure. Labs showed a leukocytosis of 32.7 with 25 bands, procalcitonin 2.40, positive UA, chest x-ray showed stable chronic changes, no acute disease. In the ER he was also complaining of difficulty urinating so a Warner catheter was placed and collected 600 cc of urine. He received a dose of ceftriaxone in the emergency room. He i s incontinent of stool and urine at baseline. He does not ambulate and is a total assist. He was admitted for management of UTI. Medical History (Last Reviewed 08/29/20 @ 21:42 by Cathy Pereyra RN) Ascending aortic aneurysm (Acute) Onset Date: ~06/2020 To be monitored annually-Due in June 2021. Vitamin D deficiency (Chronic) COPD with asthma (Chronic) Wheezing on auscultation (Acute) Hammer toes, bilateral (Chronic) Toe pain, bilateral (Acute) Toenail avulsion (Acute) left third toenail Extremity cyanosis (Chronic) bilateral feet Bilateral lower extremity edema (Chronic) Onychomycosis (Chronic) New onset atrial fibrillation (Resolved) UTI (urinary tract infection) (Acute) Atrial fibrillation (Chronic) Hepatitis C, chronic (Chronic) Anxiety (Chronic) Constipation (Chronic) Multiple sclerosis (Chronic) Onset Date: Unknown Lyme disease, unspecified Muscle weakness (generalized) Hepatitis C Onset Date: Unknown Surgical History: Surgical History (Last Reviewed 08/29/20 @ 21:43 by Cathy Pereyra RN) H/O rectal polypectomy Onset Date: ~2013 H/O total hip arthroplasty Onset Date: Unknown History of esophagogastroduodenoscopy (EGD) Onset Date: ~2013 History of tonsillectomy Onset Date: Unknown Unspecified joint replacement by other means Onset Date: Unknown Family History: Family History (Last Reviewed 08/29/20 @ 21:43 by Cathy Pereyra RN) Other No pertinent family history Social History: (Last Updated 08/29/20 @ 21:45 by Cathy Pereyra RN) Social History: mcfp: Yes Marital status: / Highest level of school completed/degree received: Associate degree: mirtha Tobacco: Smoking Status: Former smoker Review Of Systems (GEN) - Review of Systems Generalized/Overall Review: Present: Chills, Fever Respiratory: Absent: Shortness of Breath Cardiac: Absent: Chest Pain Abdominal: Absent: Abdominal Pain Misc: All systems neg except as marked Immunizations: IMMUNIZATION HX Immunizations Up to Date Yes History of Influenza Vaccine Yes Hx Pneumococcal Vaccination Yes Allergies/Adverse Reactions: Allergies Allergy/AdvReac Type Severity Reaction Status Date / Time morphine AdvReac Mild "TIME GOES Verified 08/29/20 16:42 SLOW", hallucinations Home Medications: HOME MEDICATIONS Aspirin [Aspirin Enteric Coated] 650 mg PO QID PRN 03/02/17 [Last Taken 03/07/17] nystatin 100,000 unit/gram topical powder 1 applic TP TID PRN 10/27/17 [Last Taken Unknown] docusate sodium 100 mg tablet 100 mg PO DAILY 12/23/17 [Last Taken Unknown] bisacodyl 5 mg tablet,delayed release 5 mg PO DAILY PRN #7 tab 02/25/18 [Last Taken Unknown] Chlorhexidine Gluconate [Peridex 0.12%] 15 ml MM BID 04/14/18 [Last Taken Unknown] polyethylene glycol 3350 17 gram/dose oral powder 17 g PO DAILY #238 g 06/07/18 [Last Taken Unknown] amoxicillin 500 mg capsule 2,000 mg PO ONCE cap 07/08/18 [Last Taken Unknown] fluticasone furoate 100 mcg-vilanterol 25 mcg/dose inhalation powder 1 inh IH DAILY #28 ea 01/12/19 [Last Taken Unknown] ipratropium 20 mcg-albuterol 100 mcg/actuation mist for inhalation 1 puff IH QID PRN g 03/17/19 [Last Taken Unknown] cholecalciferol (vitamin D3) 125 mcg (5,000 unit) capsule 125 mcg PO DAILY #30 cap 08/25/19 [Last Taken Unknown] gabapentin 400 mg capsule 400 mg PO HS #30 cap 12/06/19 [Last Taken Unknown] meloxicam 7.5 mg tablet 7.5 mg PO DAILY #30 tab 03/11/21 [Last Taken Unknown] atorvastatin 20 mg tablet 20 mg PO HS #30 tab 07/03/20 [Last Taken Unknown] metoprolol succinate 25 mg tablet,extended release 24 hr 25 mg PO DAILY #30 tab 07/03/20 [Last Taken Unknown] acetaminophen 325 mg tablet 650 mg PO BID #120 tab 07/04/20 [Last Taken Unknown] clonazepam 1 mg tablet 3 mg PO HS #90 tab 07/25/20 [Last Taken Unknown] modafinil 100 mg tablet 100 mg PO DAILY #1 tab 07/29/20 [Last Taken Unknown] cyanocobalamin (vitamin B-12) 1,000 mcg tablet 1,000 mcg PO DAILY #1 tab 08/15/20 [Last Taken Unknown] Aspirin 625 mg PO HS 08/30/20 [Last Taken Unknown] Cholecalciferol (Vitamin D3) [Vitamin D3] 125 mcg PO DAILY 08/30/20 [Last Taken Unknown] Exam - Exam Vital Signs: Vital Signs - Last Taken Temp 36.7 C 08/30/20 08:15 Pulse 110 H 08/30/20 08:15 Resp 20 08/30/20 08:15 BP 115/74 08/30/20 08:15 Pulse Ox 95 08/30/20 08:15 Constitutional: Present: Alert, Cooperative, Well developed, Well nourished, No distress ENT Exam: Present: hearing grossly normal, moist mucous membranes Eye Exam: bilateral eye: normal inspection, EOMI, left eye: abnormal EOM Neck: Present: non-tender, supple. Absent: lymphadenopathy (R), lymphadenopathy (L) Respiratory: Present: lungs clear, no respiratory distress, no accessory muscle use, No wheezing. Absent: crackles, rhonchi Cardiovascular/Chest: Present: normal peripheral pulses, no murmur, tachycardia, gallop/S3, edema - 1+ pitting left lower extremity Peripheral Pulses: dorsalis-pedis (R): 1+, dorsalis-pedis (L): 1+ Abdomen: Present: Normal bowel sounds, soft, nontender Extremity: Present: pedal edema - 1+ pitting left lower extremity Skin Exam: Present: normal color, warm/dry Neurologic: Present: alert, normal mood/affect Appearance: Present: appropriate appearance, appropriate insight Eye contact: Present: cooperative Thoughts: Present: normal mood /affect Diagnostic Studies: Abnormal Lab Results 08/29/20 08/29/20 08/29/20 Range/Units 17:43 17:43 17:43 WBC 32.7 H (4.0-10.5) K/mm3 RBC 4.67 L (4.7-6.0) M/mm3 MCV 102.1 H (78-100) fl MCH 32.1 H (27-31) pg MCHC 31.4 L (32-36) g/dl Immature Gran % (Auto) (0.001-0.429) % Immature Gran # (Auto) (0.000-0.0310) K/mm3 Neutrophils % (42-75.0) % Band Neuts % (Manual) 25 H (0-2.0) % Lymphocytes % (20-51) % Lymphocytes % (Manual) 3 L (20-51) % Neutrophils # (1.3-6.0) K/mm3 Neutrophils # (Manual) 22.9 H (1.3-6.0) K/mm3 Lymphocytes # (1.5-3.5) k/mm3 Lymphocytes # (Manual) 1.0 L (1.5-3.5) k/mm3 D-Dimer (0.19-0.49) ugFEU/mL Chloride (97-106) mmol/L Random Glucose (70-110) mg/dL Calcium (7.9-10.9) mg/dL Calcium Adj for Albumin (8.4-10.2) mg/dL C-Reactive Prot, Quant 6.5 H (0.0-0.9) mg/dL B-Natriuretic Peptide 1135 H (5-350) pg/mL Total Protein (6.2-8.2) gm/dL Albumin 3.1 L (3.4-5.0) gm/dl Lipase 48 L (73-393) U/L Procalcitonin 2.40 H (0.05-0.50) ng/mL Urine Blood (NEGATIVE) /ul Ur Leukocyte Esterase (NEGATIVE) /ul Urine Bacteria (NONE) 08/29/20 08/29/20 08/30/20 Range/Units 17:43 18:29 06:18 WBC 17.7 H D (4.0-10.5) K/mm3 RBC 4.31 L (4.7-6.0) M/mm3 MCV 101.4 H (78-100) fl MCH 31.8 H (27-31) pg MCHC 31.4 L (32-36) g/dl Immature Gran % (Auto) 0.80 H (0.001-0.429) % Immature Gran # (Auto) 0.14 H (0.000-0.0310) K/mm3 Neutrophils % 88.9 H (42-75.0) % Band Neuts % (Manual) (0-2.0) % Lymphocytes % 4.3 L (20-51) % Lymphocytes % (Manual) (20-51) % Neutrophils # 15.8 H (1.3-6.0) K/mm3 Neutrophils # (Manual) (1.3-6.0) K/mm3 Lymphocytes # 0.76 L (1.5-3.5) k/mm3 Lymphocytes # (Manual) (1.5-3.5) k/mm3 D-Dimer 0.80 H (0.19-0.49) ugFEU/mL Chloride (97-106) mmol/L Random Glucose (70-110) mg/dL Calcium (7.9-10.9) mg/dL Calcium Adj for Albumin (8.4-10.2) mg/dL C-Reactive Prot, Quant (0.0-0.9) mg/dL B-Natriuretic Peptide (5-350) pg/mL Total Protein (6.2-8.2) gm/dL Albumin (3.4-5.0) gm/dl Lipase (73-393) U/L Procalcitonin (0.05-0.50) ng/mL Urine Blood 5 H (NEGATIVE) /ul Ur Leukocyte Esterase 25 H (NEGATIVE) /ul Urine Bacteria 4+ H (NONE) 08/30/20 Range/Units 06:18 WBC (4.0-10.5) K/mm3 RBC (4.7-6.0) M/mm3 MCV (78-100) fl MCH (27-31) pg MCHC (32-36) g/dl Immature Gran % (Auto) (0.001-0.429) % Immature Gran # (Auto) (0.000-0.0310) K/mm3 Neutrophils % (42-75.0) % Band Neuts % (Manual) (0-2.0) % Lymphocytes % (20-51) % Lymphocytes % (Manual) (20-51) % Neutrophils # (1.3-6.0) K/mm3 Neutrophils # (Manual) (1.3-6.0) K/mm3 Lymphocytes # (1.5-3.5) k/mm3 Lymphocytes # (Manual) (1.5-3.5) k/mm3 D-Dimer (0.19-0.49) ugFEU/mL Chloride 107 H (97-106) mmol/L Random Glucose 116 H (70-110) mg/dL Calcium 7.3 L (7.9-10.9) mg/dL Calcium Adj for Albumin 8.0 L (8.4-10.2) mg/dL C-Reactive Prot, Quant (0.0-0.9) mg/dL B-Natriuretic Peptide (5-350) pg/mL Total Protein 6.1 L (6.2-8.2) gm/dL Albumin 2.7 L (3.4-5.0) gm/dl Lipase (73-393) U/L Procalcitonin (0.05-0.50) ng/mL Urine Blood (NEGATIVE) /ul Ur Leukocyte Esterase (NEGATIVE) /ul Urine Bacteria (NONE) Microbiology 08/29/20 18:45 Urine Culture - Preliminary Urine,Catheterized No Growth Laboratory Results WBC 17.7 K/mm3 (4.0-10.5) H D 08/30/20 06:18 RBC 4.31 M/mm3 (4.7-6.0) L 08/30/20 06:18 Hgb 13.7 gm/dL (13.5-18.0) 08/30/20 06:18 Hct 43.7 % (42.0-52.0) 08/30/20 06:18 MCV 101.4 fl (78-100) H 08/30/20 06:18 MCH 31.8 pg (27-31) H 08/30/20 06:18 MCHC 31.4 g/dl (32-36) L 08/30/20 06:18 RDW 14.0 % (11.5-14.0) 08/30/20 06:18 Plt Count 162 K/mm3 (150-450) 08/30/20 06:18 MPV 10.5 fl (8-11.3) 08/30/20 06:18 Immature Gran % (Auto) 0.80 % (0.001-0.429) H 08/30/20 06:18 Immature Gran # (Auto) 0.14 K/mm3 (0.000-0.0310) H 08/30/20 06:18 Neutrophils % 88.9 % (42-75.0) H 08/30/20 06:18 Neutrophils % (Manual) 70 % (42-75) 08/29/20 17:43 Band Neuts % (Manual) 25 % (0-2.0) H 08/29/20 17:43 Lymphocytes % 4.3 % (20-51) L 08/30/20 06:18 Lymphocytes % (Manual) 3 % (20-51) L 08/29/20 17:43 Monocytes % 5.6 % (0.0-9) 08/30/20 06:18 Monocytes % (Manual) 1 % (0-9) 08/29/20 17:43 Eosinophils % 0.2 % (0.0-3.0) 08/30/20 06:18 Eosinophils % (Manual) 1 % (0-3) 08/29/20 17:43 Basophils % 0.2 % (0.0-1.0) 08/30/20 06:18 Nucleated RBC % 0.0 k/mm3 (0-1) 08/30/20 06:18 Neutrophils # 15.8 K/mm3 (1.3-6.0) H 08/30/20 06:18 Neutrophils # (Manual) 22.9 K/mm3 (1.3-6.0) H 08/29/20 17:43 Lymphocytes # 0.76 k/mm3 (1.5-3.5) L 08/30/20 06:18 Lymphocytes # (Manual) 1.0 k/mm3 (1.5-3.5) L 08/29/20 17:43 Monocytes # 1.0 k/mm3 (0.0-1.0) 08/30/20 06:18 Monocytes # (Manual) 0.3 k/mm3 (0.0-1.0) 08/29/20 17:43 Eosinophils # 0.0 k/mm3 (0.0-0.7) 08/30/20 06:18 Eosinophils # (Manual) 0.3 k/mm3 (0.0-0.7) 08/29/20 17:43 Absolute Basophils 0.0 k/mm3 (0.0-0.1) 08/30/20 06:18 Toxic Vacuolation Trace 08/29/20 17:43 Platelet Estimate Normal (NORMAL) 08/29/20 17:43 Anisocytosis Trace 08/29/20 17:43 D-Dimer 0.80 ugFEU/mL (0.19-0.49) H 08/29/20 17:43 Sodium 141 mmol/L (132-142) 08/30/20 06:18 Plasma Sodium 141 mmol/L (130-142) 08/30/20 06:18 Potassium 3.7 mmol/L (3.4-4.6) 08/30/20 06:18 Chloride 107 mmol/L (97-106) H 08/30/20 06:18 Carbon Dioxide 26.4 mmol/L (24-32.6) 08/30/20 06:18 Anion Gap 11.3 mmol/L (6.8-13.8) 08/30/20 06:18 BUN 14 mg/dL (6-23) 08/30/20 06:18 Creatinine 0.71 mg/dL (0.4-1.4) 08/30/20 06:18 Est GFR (Non-Af Amer) 116 mL/min (60-130) 08/30/20 06:18 BUN/Creatinine Ratio 19.7 (9.0-21.6) 08/30/20 06:18 Random Glucose 116 mg/dL (70-110) H 08/30/20 06:18 Lactic Acid, Venous 1.3 mmol/L (0.4-2.0) 08/29/20 17:43 Calcium 7.3 mg/dL (7.9-10.9) L 08/30/20 06:18 Calcium Adj for Albumin 8.0 mg/dL (8.4-10.2) L 08/30/20 06:18 Total Bilirubin 0.5 mg/dL (0.0-1.1) 08/30/20 06:18 AST 26 U/L (0-48) 08/30/20 06:18 ALT 24 U/L (19-67) 08/30/20 06:18 Alkaline Phosphatase 117 U/L (50-170) 08/30/20 06:18 C-Reactive Prot, Quant 6.5 mg/dL (0.0-0.9) H 08/29/20 17:43 B-Natriuretic Peptide 1135 pg/mL (5-350) H 08/29/20 17:43 Total Protein 6.1 gm/dL (6.2-8.2) L 08/30/20 06:18 Albumin 2.7 gm/dl (3.4-5.0) L 08/30/20 06:18 Amylase 33 U/L (25-115) 08/29/20 17:43 Lipase 48 U/L (73-393) L 08/29/20 17:43 Procalcitonin 2.40 ng/mL (0.05-0.50) H 08/29/20 17:43 Urine Color Yellow 08/29/20 18:29 Urine Appearance Cloudy (CLEAR) 08/29/20 18: Urine pH 6.0 pH (5.0-7.0) 08/29/20 18: Ur Specific [place] 1.020 SP.GR. (1.005-1.030) 08/29/20 18:29 Urine Protein Negative mg/dL (NEGATIVE) 08/29/20 18: Urine Glucose (UA) Negative mg/dL (NEGATIVE) 08/29/20 18: Urine Ketones 5 mg/dL (NEGATIVE) 08/29/20 18:29 Urine Blood 5 /ul (NEGATIVE) H 08/29/20 18:29 Urine Nitrate Negative (NEGATIVE) 08/29/20 18: Urine Bilirubin Negative mg/dl (NEGATIVE) 08/29/20 18:29 Urine Urobilinogen Normal EU/dl (NORMAL) 08/29/20 18:29 Ur Leukocyte Esterase 25 /ul (NEGATIVE) H 08/29/20 18:29 Urine RBC 0-5 /hpf (0-5) 08/29/20 18: Urine WBC 0-5 /hpf (0-5) 08/29/20 18:29 Ur Epithelial Cells Trace /hpf (0-5) 08/29/20 18:29 Urine Bacteria 4+ (NONE) H 08/29/20 18:29 Urine Culture Comments Culture to follow 08/29/20 18: SARS-CoV-2 (PCR) Not detected (NotDetected) 08/29/20 19:41 Assessment/Plan - Narrative Narrative: 75-year-old male with a past medical history of anxiety, atrial fibrillation, constipation, COPD with asthma, hepatitis C, Lyme disease, multiple sclerosis, UTI presents from the [facility] with complaints of fever and worsen ing weakness. In the ER, the patient was found to have a fever of 39.1, tachycardia of 127, tachypnea of 24 and normal blood pressure. Labs showed a leukocytosis of 32.7 with 25 bands, procalcitonin 2.40, positive UA, chest x-ray showed stable chronic changes, no acute disease. In the ER he was also complaining of difficulty urinating so a Warner catheter was placed and collected 600 cc of urine. He received a dose of ceftriaxone in the emergency room. He is incontinent of stool and urine at baseline. He does not ambulate and is a total assist. He was admitted for management of UTI. Overnight the patient continued to have fever and tachycardia. He complained of being cold and was wearing a sweater and had a lot of blankets on him, which she refused to remove. Today he denies any complaints. He has been getting Tylenol for fever. Leukocytosis has come down from 32.7 to 17.7. Plan #1 continue with ceftriaxone 1 g every 24 hours, day 2 #2 if tachycardia continues I will consider increasing his metoprolol from 25 to 50 mg daily #3 resume home medications for comorbidities #4 discontinue IV fluids since he is tolerating a diet. #5 CBC and CMP in the morning #6 discontinue Warner #7 follow-up urine cultures Urine cultures have no growth. Etiology of his fevers and leukocytosis is not clear. He does not have any abdominal tenderness, chest x-ray was cardiopu lmonary disease. Continue ceftriaxone for now since his leukocytosis is improving and he is febrile. - Assessment/Plan (1) Sepsis Problem: Acute (2) UTI (urinary tract infection) Problem: Acute Qualifiers: Urinary tract infection type: site unspecified Hematuria presence: with hematuria Qualified Code(s): N39.0 - Urinary tract infection, site not specified; R31.9 - Hematuria, unspecified (3) Urinary retention Problem: Acute (4) COPD with asthma Problem: Chronic (5) Atrial fibrillation Problem: Chronic Qualifiers: (6) Hepatitis C, chronic Problem: Chronic Qualifiers: (7) Anxiety Problem: Chronic (8) Constipation Problem: Chronic Qualifiers: (9) Multiple sclerosis Problem: Chronic
[2020-08-30] MEDS: POLYETHYLENE GLYCOL 3350 17 GM PACKET PO SCH (09:55)
[2020-08-30] MEDS: DOCUSATE SODIUM 100 MG CAPSULE PO SCH (09:55)
[2020-08-30] MEDS: CYANOCOBALAMIN 1,000 MCG TABLET PO SCH (09:55)
[2020-08-30] MEDS: FLUTICASONE PROPION/SALMETEROL 14 PUFF DISK.W.DEV IH SCH ×2 (09:55→20:37)
[2020-08-30] MEDS: MELOXICAM 7.5 MG TABLET PO SCH (09:55)
[2020-08-30] MEDS: ENOXAPARIN SODIUM 40 MG/0.4 ML SYRG SC SCH (11:51)
[2020-08-30] MEDS: ROSUVASTATIN CALCIUM 10 MG TABLET PO SCH (20:37)
[2020-08-30] MEDS: GABAPENTIN 400 MG CAPSULE PO SCH (20:38)
[2020-08-30] MEDS: clonazePAM 1 MG TABLET PO SCH (21:23)
[2020-08-31 06:31] LABS: Hematocrit 43.4 % (42.0-52.0); Hemoglobin 13.6 gm/dL (13.5-18.0); Mean Cell Volume 101.9 fl (78-100); Mean Corpuscular Hemoglobin 31.9 pg (27-31); Mean Corpuscular Hgb Conc 31.3 g/dl (32-36); Mean Platelet Volume 10.2 fl (8-11.3); Neutrophil # 6.7 K/mm3 (1.3-6.0); Neutrophil % 66.6 % (42-75.0); Platelet Count 163 K/mm3 (150-450); Red Blood Count 4.26 M/mm3 (4.7-6.0); Red Cell Distribution Width 14.2 % (11.5-14.0)
[2020-08-31 06:47] LABS: Albumin * 2.8 gm/dl (3.4-5.0); Anion Gap 13.7 mmol/L (6.8-13.8); BUN/Creatinine Ratio 12.5 (9.0-21.6); Bilirubin, Total 0.5 mg/dL (0.0-1.1); Ca. Corrected For Albumin 8.5 mg/dL (8.4-10.2); Calcium * 7.9 mg/dL (7.9-10.9); Potassium 3.7 mmol/L (3.4-4.6); Total Protein 6.1 gm/dL (6.2-8.2)
[2020-08-31] MEDS: FLUTICASONE PROPION/SALMETEROL 14 PUFF DISK.W.DEV IH SCH ×2 (09:17→21:29)
[2020-08-31] MEDS: METOPROLOL SUCCINATE 25 MG TABLET.SA PO SCH (09:19)
[2020-08-31] MEDS: CYANOCOBALAMIN 1,000 MCG TABLET PO SCH (09:20)
[2020-08-31] MEDS: DOCUSATE SODIUM 100 MG CAPSULE PO SCH (09:20)
[2020-08-31] MEDS: MELOXICAM 7.5 MG TABLET PO SCH (09:20)
[2020-08-31] MEDS: POLYETHYLENE GLYCOL 3350 17 GM PACKET PO SCH (09:21)
[2020-08-31] MEDS: ENOXAPARIN SODIUM 40 MG/0.4 ML SYRG SC SCH (09:24)
--- NOTE | 2020-08-31 10:26 | PN ---
Subjective - Date and Time Seen Date: 08/31/20 Time: 11:24 Subjective Narrative: He reports feeling lousy, not being able to catch his breath. He is still tachycardic in the 130's. He reports his breathing at baseline is a bit shallow from his MS. Objective - Review of Systems Generalized/Overall Review: Denies: Fever Respiratory: Reports: Shortness of Breath Cardiac: Denies: Chest Pain Abdominal: Reports: No Symptoms Reported Genitourinary Symptoms: Reports: No Symptoms Reported Musculoskeletal Complaints: Reports: Other - lower leg numbness - Vitals Vitals: Last Vital Signs Temp 37.2 C 08/31/20 08:47 Pulse 117 H 08/31/20 09:19 Resp 34 H 08/31/20 08:47 BP 132/94 H 08/31/20 09:19 Pulse Ox 94 08/31/20 08:47 - Abnormal Lab Findings Abnormal Lab Findings: Abnormal Lab Results 08/31/20 08/31/20 Range/Units 06:20 06:20 RBC 4.26 L (4.7-6.0) M/mm3 MCV 101.9 H (78-100) fl MCH 31.9 H (27-31) pg MCHC 31.3 L (32-36) g/dl RDW 14.2 H (11.5-14.0) % Lymphocytes % 19.0 L (20-51) % Monocytes % 11.0 H (0.0-9) % Neutrophils # 6.7 H (1.3-6.0) K/mm3 Monocytes # 1.1 H (0.0-1.0) k/mm3 Total Protein 6.1 L (6.2-8.2) gm/dL Albumin 2.8 L (3.4-5.0) gm/dl - Exam Constitutional: Present: Alert, Mild distress, Obese Cauti Physician Documentation - Urinary Catheter Management Coude Date of Insertion: 08/29/20 Time of Insertion: 18:46 Date of Removal: 08/30/20 Time of Removal: 10:05 Assessment/Plan Plan Narrative: Today is hospitalization day #3 for fever in a patient with MS who resides at a long-term. The source of his fever has not yet been found. He reported some SOB to the ERP, and tells me he has SOB at baseline. Denied abdominal pain to the ERP. He has urinary and fecal incontinence at baseline. Procalcitonin was elevated at 2.4. His WBC improved from 32.7 on admission to 10.0 today with rocephin. He has been afebrile since yesterday morning. Repeat procalcitonin pending. On my exam, he is tachycardic to the 140's and tachypneic. EKG yesterday showed afib with RVR. Chart review shows yesterday's attending planned to increase his metoprolol dose to 50 if the tachycardia persisted, and this has been done. If it still persists this afternoon, will obtain CT scan of his chest to investigate for PE. He is being given lovenox. He reports feeling lousy due to his breathing, which may be from his tachycardia. He met sepsis criteria with his WBC, HR, RR, fever. His current qSOFA score is 1 for tachypnea, which is not high risk for sepsis. Mentation appears intact, though today is the first day I've met him. BP is 130's/90's. He is meeting SIRS criteria, however SIRS criteria is not specific for infectious source, and can be positive for many reasons other than infection. - Problems/Diagnosis (1) Tachycardia Problem: Acute (2) Fever of unknown origin Problem: Resolved (3) Sepsis Problem: Suspected (4) Atrial fibrillation Problem: Chronic Qualifiers: (5) Multiple sclerosis Problem: Chronic (6) Incontinence Problem: Chronic (7) Urinary retention Problem: Acute
[2020-08-31] MEDS ORDERED: METOPROLOL SUCCINATE 25 MG TABLET.SA PO ONE (11:30)
[2020-08-31] MEDS: ACETAMINOPHEN 500 MG TABLET PO PRN (15:17)
[2020-08-31] MEDS: PIPERACILLIN SODIUM/TAZOBACTAM 3.375 GM in DEXTROSE 5 % IN WATER 100 ML IV SCH ×2 (18:02)
[2020-08-31] MEDS: VANCOMYCIN/WATER FOR INJ (PEG) 1.5 GM/300 ML BAG IV SCH (21:28)
[2020-08-31] MEDS: ROSUVASTATIN CALCIUM 10 MG TABLET PO SCH (21:29)
[2020-08-31] MEDS: GABAPENTIN 400 MG CAPSULE PO SCH (21:29)
[2020-08-31] MEDS: clonazePAM 1 MG TABLET PO SCH (21:31)
[2020-08-31] MEDS: SACCHAROMYCES BOULARDII 250 MG CAPSULE PO SCH (21:35)
[2020-09-01] MEDS: PIPERACILLIN SODIUM/TAZOBACTAM 3.375 GM in DEXTROSE 5 % IN WATER 100 ML IV SCH ×6 (01:51→17:45)
[2020-09-01 06:53] LABS: Hematocrit 43.9 % (42.0-52.0); Hemoglobin 13.4 gm/dL (13.5-18.0); Mean Cell Volume 101.2 fl (78-100); Mean Corpuscular Hemoglobin 30.9 pg (27-31); Mean Corpuscular Hgb Conc 30.5 g/dl (32-36); Mean Platelet Volume 9.9 fl (8-11.3); Neutrophil # 6.7 K/mm3 (1.3-6.0); Neutrophil % 61.6 % (42-75.0); Platelet Count 169 K/mm3 (150-450); Red Blood Count 4.34 M/mm3 (4.7-6.0); Red Cell Distribution Width 13.9 % (11.5-14.0); White Blood Count 10.8 K/mm3 (4.0-10.5)
[2020-09-01 07:04] LABS: Albumin * 2.8 gm/dl (3.4-5.0); Anion Gap 12.6 mmol/L (6.8-13.8); BUN/Creatinine Ratio 11.8 (9.0-21.6); Bilirubin, Total 0.9 mg/dL (0.0-1.1); Ca. Corrected For Albumin 8.5 mg/dL (8.4-10.2); Calcium * 7.9 mg/dL (7.9-10.9); Carbon Dioxide 28.9 mmol/L (24-32.6); Potassium 3.5 mmol/L (3.4-4.6); Total Protein 6.2 gm/dL (6.2-8.2)
--- NOTE | 2020-09-01 08:04 | PN ---
Subjective - Date and Time Seen Date: 09/01/20 Subjective Narrative: His HR remained elevated yesterday, so CT chest was obtained. He also had a fever yesterday afternoon, so antibiotics were broadened to vanc and zosyn. His HR improved, but he still reports not feeling better than he did yesterday. Objective - Review of Systems Generalized/Overall Review: Reports: Fever Respiratory: Reports: Shortness of Breath Cardiac: Denies: Edema Abdominal: Reports: No Symptoms Reported Genitourinary Symptoms: Reports: Incontinent - Vitals Vitals: Last Vital Signs Temp 36.9 C 09/01/20 07:00 Pulse 88 09/01/20 07:00 Resp 14 09/01/20 07:00 BP 99/75 09/01/20 07:00 Pulse Ox 95 09/01/20 07:00 - Abnormal Lab Findings Abnormal Lab Findings: Abnormal Lab Results 08/31/20 09/01/20 09/01/20 Range/Units 06:20 06:40 06:40 WBC 10.8 H (4.0-10.5) K/mm3 RBC 4.34 L (4.7-6.0) M/mm3 Hgb 13.4 L (13.5-18.0) gm/dL MCV 101.2 H (78-100) fl MCHC 30.5 L (32-36) g/dl Immature Gran % (Auto) 0.50 H (0.001-0.429) % Immature Gran # (Auto) 0.05 H (0.000-0.0310) K/mm3 Monocytes % 13.0 H (0.0-9) % Eosinophils % 3.4 H (0.0-3.0) % Neutrophils # 6.7 H (1.3-6.0) K/mm3 Monocytes # 1.4 H (0.0-1.0) k/mm3 ALT 15 L (19-67) U/L Albumin 2.8 L (3.4-5.0) gm/dl Procalcitonin 1.44 H (0.05-0.50) ng/mL - Exam Constitutional: Present: No distress, Other - sleeping, wakens for exam Respiratory: Present: lungs clear, normal breath sounds, no respiratory distress. Absent: crackles, rales, rhonchi Cardiovascular/Chest: Present: regular rate, rhythm Abdomen: Present: Normal bowel sounds, nontender Extremity: Absent: lower extremity edema Eye contact: Present: other - stocking cap pulled down over eyes Cauti Physician Documentation - Urinary Catheter Management Coude Date of Insertion: 08/29/20 Time of Insertion: 18:46 Date of Removal: 08/30/20 Time of Removal: 10:05 Assessment/Plan Plan Narrative: He felt "lousy" yesterday and HR remained elevated to the 130's, so CT chest was obtained to evaluate for PE. He also had a fever yesterday afternoon, so antibiotics were broadened to vanc and zosyn. CT was negative for PE, but suggested pulmonary edema, and infiltrate not excluded. He spiked a fever so abx were changed, and he improved after the abx change, making it suspicious that his fever and presentation are due to pneumonia. He reports having shallow breathing due to his MS, which gives him the predisposition for atelectasis and subsequent pneumonia. WBC was initially 32.7, improved to 10 on rocephin by yesterday morning, but he then had a fever so abx were changed. WBC 10.8 this morning. Will continue vanc and zosyn. - Problems/Diagnosis (1) Tachycardia Problem: Resolved (2) Fever of unknown origin Problem: Resolved (3) Sepsis Problem: Suspected (4) Atrial fibrillation Problem: Chronic Qualifiers: (5) Multiple sclerosis Problem: Chronic (6) Incontinence Problem: Chronic (7) Urinary retention Problem: Resolved (8) Pulmonary edema Problem: Suspected (9) Pulmonary hypertension Problem: Suspected
[2020-09-01] MEDS: FLUTICASONE PROPION/SALMETEROL 14 PUFF DISK.W.DEV IH SCH ×2 (09:48→20:57)
[2020-09-01] MEDS: POLYETHYLENE GLYCOL 3350 17 GM PACKET PO SCH (09:49)
[2020-09-01] MEDS: DOCUSATE SODIUM 100 MG CAPSULE PO SCH (09:51)
[2020-09-01] MEDS: CYANOCOBALAMIN 1,000 MCG TABLET PO SCH (09:51)
[2020-09-01] MEDS: MELOXICAM 7.5 MG TABLET PO SCH (09:51)
[2020-09-01] MEDS: METOPROLOL SUCCINATE 50 MG TABLET.SA PO SCH (09:52)
[2020-09-01] MEDS: SACCHAROMYCES BOULARDII 250 MG CAPSULE PO SCH ×2 (09:52→20:57)
[2020-09-01] MEDS: ENOXAPARIN SODIUM 40 MG/0.4 ML SYRG SC SCH (09:53)
[2020-09-01] MEDS: clonazePAM 1 MG TABLET PO SCH (20:57)
[2020-09-01] MEDS: GABAPENTIN 400 MG CAPSULE PO SCH (20:58)
[2020-09-01] MEDS: ROSUVASTATIN CALCIUM 10 MG TABLET PO SCH (20:58)
[2020-09-01] MEDS: VANCOMYCIN/WATER FOR INJ (PEG) 1.5 GM/300 ML BAG IV SCH (21:46)
[2020-09-02] MEDS: PIPERACILLIN SODIUM/TAZOBACTAM 3.375 GM in DEXTROSE 5 % IN WATER 100 ML IV SCH ×6 (01:53→18:02)
[2020-09-02 06:23] LABS: Hematocrit 44.9 % (42.0-52.0); Mean Cell Volume 100.7 fl (78-100); Mean Corpuscular Hemoglobin 31.4 pg (27-31); Mean Corpuscular Hgb Conc 31.2 g/dl (32-36); Neutrophil # 6.5 K/mm3 (1.3-6.0); Neutrophil % 60.4 % (42-75.0); Platelet Count 178 K/mm3 (150-450); Red Blood Count 4.46 M/mm3 (4.7-6.0); Red Cell Distribution Width 13.7 % (11.5-14.0); White Blood Count 10.7 K/mm3 (4.0-10.5)
[2020-09-02 06:37] LABS: Albumin * 2.6 gm/dl (3.4-5.0); Anion Gap 10.8 mmol/L (6.8-13.8); BUN/Creatinine Ratio 12.2 (9.0-21.6); Bilirubin, Total 0.6 mg/dL (0.0-1.1); Ca. Corrected For Albumin 8.5 mg/dL (8.4-10.2); Calcium * 7.7 mg/dL (7.9-10.9); Carbon Dioxide 29.9 mmol/L (24-32.6); Potassium 3.7 mmol/L (3.4-4.6); Total Protein 6.2 gm/dL (6.2-8.2)
[2020-09-02] MEDS: POLYETHYLENE GLYCOL 3350 17 GM PACKET PO SCH (08:09)
[2020-09-02] MEDS: FLUTICASONE PROPION/SALMETEROL 14 PUFF DISK.W.DEV IH SCH ×2 (08:09→20:46)
[2020-09-02] MEDS: MELOXICAM 7.5 MG TABLET PO SCH (08:10)
[2020-09-02] MEDS: CYANOCOBALAMIN 1,000 MCG TABLET PO SCH (08:10)
[2020-09-02] MEDS: DOCUSATE SODIUM 100 MG CAPSULE PO SCH (08:10)
[2020-09-02] MEDS: SACCHAROMYCES BOULARDII 250 MG CAPSULE PO SCH ×2 (08:10→20:44)
[2020-09-02] MEDS: METOPROLOL SUCCINATE 50 MG TABLET.SA PO SCH (08:10)
[2020-09-02] MEDS: ENOXAPARIN SODIUM 40 MG/0.4 ML SYRG SC SCH (09:16)
--- NOTE | 2020-09-02 10:40 | PN ---
Subjective - Date and Time Seen Date: 09/02/20 Time: 09:30 Subjective Narrative: He denies having shortness of breath today, and feels more like his normal self, but still has reduced energy. Has remained afebrile. Objective - Review of Systems Generalized/Overall Review: Denies: Fever Respiratory: Denies: Shortness of Breath Abdominal: Reports: No Symptoms Reported Genitourinary Symptoms: Reports: Incontinent Musculoskeletal Complaints: Reports: Other - numbness at baseline - Vitals Vitals: Last Vital Signs Temp 36.2 C 09/02/20 07:05 Pulse 93 09/02/20 08:10 Resp 16 09/02/20 07:05 BP 110/65 09/02/20 08:10 Pulse Ox 99 09/02/20 07:05 - Abnormal Lab Findings Abnormal Lab Findings: Abnormal Lab Results 09/02/20 09/02/20 Range/Units 06:15 06:15 WBC 10.7 H (4.0-10.5) K/mm3 RBC 4.46 L (4.7-6.0) M/mm3 MCV 100.7 H (78-100) fl MCH 31.4 H (27-31) pg MCHC 31.2 L (32-36) g/dl Immature Gran # (Auto) 0.04 H (0.000-0.0310) K/mm3 Monocytes % 9.9 H (0.0-9) % Eosinophils % 8.2 H (0.0-3.0) % Neutrophils # 6.5 H (1.3-6.0) K/mm3 Monocytes # 1.1 H (0.0-1.0) k/mm3 Eosinophils # 0.9 H (0.0-0.7) k/mm3 Calcium 7.7 L (7.9-10.9) mg/dL Albumin 2.6 L (3.4-5.0) gm/dl - Exam Constitutional: Present: No distress Respiratory: Present: lungs clear, normal breath sounds Cardiovascular/Chest: Present: regular rate, rhythm Abdomen: Present: soft, nontender Extremity: Absent: lower extremity edema Cauti Physician Documentation - Urinary Catheter Management Coude Date of Insertion: 08/29/20 Time of Insertion: 18:46 Date of Removal: 08/30/20 Time of Removal: 10:05 Assessment/Plan Plan Narrative: Suspect pneumonia as the source of his presentation, since he had a fever 2 days ago while on Rocephin, and responded to vanc and zosyn. His MS at baseline complicates diagnosis. He has been afebrile for almost 48 hours, and heart rate has been normal in that time frame. Will reduce to augmentin and monitor progress, rechecking labs in the morning. If he remaines afebrile, may DC back to facility tomorrow. - Problems/Diagnosis (1) Pneumonia Problem: Acute (2) Tachycardia Problem: Resolved (3) Fever of unknown origin Problem: Resolved (4) Sepsis Problem: Suspected (5) Atrial fibrillation Problem: Chronic Qualifiers: (6) Multiple sclerosis Problem: Chronic (7) Incontinence Problem: Chronic (8) Urinary retention Problem: Resolved (9) Pulmonary edema Problem: Suspected (10) Pulmonary hypertension Problem: Suspected
[2020-09-02] MEDS: clonazePAM 1 MG TABLET PO SCH (20:44)
[2020-09-02] MEDS: ROSUVASTATIN CALCIUM 10 MG TABLET PO SCH (20:44)
[2020-09-02] MEDS: GABAPENTIN 400 MG CAPSULE PO SCH (20:44)
[2020-09-02] MEDS: AMOX TR/POTASSIUM CLAVULANATE 875 MG TABLET PO SCH (20:44)
[2020-09-02] MEDS: ACETAMINOPHEN 500 MG TABLET PO PRN (20:50)
[2020-09-03 07:27] LABS: Hematocrit 44.4 % (42.0-52.0); Hemoglobin 13.9 gm/dL (13.5-18.0); Mean Cell Volume 100.5 fl (78-100); Mean Corpuscular Hemoglobin 31.4 pg (27-31); Mean Corpuscular Hgb Conc 31.3 g/dl (32-36); Mean Platelet Volume 9.9 fl (8-11.3); Neutrophil # 4.8 K/mm3 (1.3-6.0); Neutrophil % 52.8 % (42-75.0); Platelet Count 194 K/mm3 (150-450); Red Blood Count 4.42 M/mm3 (4.7-6.0); Red Cell Distribution Width 13.4 % (11.5-14.0); White Blood Count 9.1 K/mm3 (4.0-10.5)
[2020-09-03 07:48] LABS: Albumin * 2.6 gm/dl (3.4-5.0); Anion Gap 8.2 mmol/L (6.8-13.8); BUN/Creatinine Ratio 15.3 (9.0-21.6); Bilirubin, Total 0.5 mg/dL (0.0-1.1); Ca. Corrected For Albumin 9.1 mg/dL (8.4-10.2); Calcium * 8.3 mg/dL (7.9-10.9); Carbon Dioxide 29.5 mmol/L (24-32.6); Potassium 3.7 mmol/L (3.4-4.6); Total Protein 6.2 gm/dL (6.2-8.2)
[2020-09-03] MEDS: DOCUSATE SODIUM 100 MG CAPSULE PO SCH (09:20)
[2020-09-03] MEDS: SACCHAROMYCES BOULARDII 250 MG CAPSULE PO SCH (09:20)
[2020-09-03] MEDS: MELOXICAM 7.5 MG TABLET PO SCH (09:20)
[2020-09-03] MEDS: FLUTICASONE PROPION/SALMETEROL 14 PUFF DISK.W.DEV IH SCH (09:20)
[2020-09-03] MEDS: AMOX TR/POTASSIUM CLAVULANATE 875 MG TABLET PO SCH (09:20)
[2020-09-03] MEDS: CYANOCOBALAMIN 1,000 MCG TABLET PO SCH (09:20)
[2020-09-03] MEDS: ENOXAPARIN SODIUM 40 MG/0.4 ML SYRG SC SCH (09:21)
[2020-09-03] MEDS: POLYETHYLENE GLYCOL 3350 17 GM PACKET PO SCH (09:21)
[2020-09-03] MEDS: METOPROLOL SUCCINATE 50 MG TABLET.SA PO SCH (09:21)
--- NOTE | 2020-09-03 10:12 | DS ---
(1) Sepsis Problem: Suspected (2) Pneumonia Problem: Acute (3) UTI (urinary tract infection) Problem: Acute Qualifiers: Urinary tract infection type: site unspecified Hematuria presence: with hematuria Qualified Code(s): N39.0 - Urinary tract infection, site not specified; R31.9 - Hematuria, unspecified (4) Urinary retention Problem: Resolved (5) COPD with asthma Problem: Chronic (6) Atrial fibrillation Problem: Chronic Qualifiers: (7) Hepatitis C, chronic Problem: Chronic Qualifiers: (8) Anxiety Problem: Chronic (9) Constipation Problem: Chronic Qualifiers: (10) Multiple sclerosis Problem: Chronic Hospital Course: 75-year-old male with a past medical history of anxiety, atrial fibrillation, constipation, COPD with asthma, hepatitis C, Lyme disease, multiple sclerosis, UTI presents from the [facility] with complaints of fever and worsening weakness. In the ER, the patient was found to have a fever of 39.1, tachycardia of 127, tachypnea of 24 and normal blood pressure. Labs showed a l eukocytosis of 32.7 with 25 bands, procalcitonin 2.40, positive UA, chest x-ray showed stable chronic changes, no acute disease. In the ER he was also complaining of difficulty urinating so a Warner catheter was placed and collected 600 cc of urine. He received a dose of ceftriaxone in the emergency room. He is incontinent of stool and urine at baseline. He does not ambulate and is a total assist. He was admitted for management of UTI. CT angio performed on August 31, 2020 showed findings suggestive of interstitial/mild pulmonary edema with bilateral interlobular septal thickening, scattered subtle groundglass opacities in bilateral small pleural effusions with adjacent relaxation atelectasis. Superimposed infection not completely excluded. He was started on Zosyn and transitioned to Augmentin and has remained afebrile with stable vitals. His leukocytosis has also resolved. I will discharge him back to the medicine today on 4 more days of Augmentin. Total time spent at time of discharge: 31 minutes, greater than 50% of the time was spent in counseling about diagnosis, discussing the plan of care, filling out discharge instructions, completing medication reconciliation and co ordination of care. Procedures Performed: none Results and Findings: Pending Mircobiology Results 08/31/20 16:45 Blood Blood Culture - Preliminary NO GROWTH AFTER 48 HOURS 08/31/20 16:28 Blood Blood Culture - Preliminary NO GROWTH AFTER 48 HOURS 08/29/20 19:30 Blood Blood Culture - Preliminary NO GROWTH AFTER 48 HOURS 08/29/20 17:43 Blood Blood Culture - Preliminary NO GROWTH AFTER 48 HOURS Lab Pending Results 08/29/20 17:43: Procalcitonin 2.40 H 08/29/20 17:43: WBC 32.7 H, RBC 4.67 L, Hgb 15.0, Hct 47.7, MCV 102.1 H, MCH 32.1 H, MCHC 31.4 L, RDW 13.8, Plt Count 186, MPV 10.3, Neutrophils % (Manual) 70, Band Neuts % (Manual) 25 H, Lymphocytes % (Manual) 3 L, Monocytes % (Manual) 1, Eosinophils % (Manual) 1, Neutrophils # (Manual) 22.9 H, Lymphocytes # (Manual) 1.0 L, Monocytes # (Manual) 0.3, Eosinophils # (Manual) 0.3, Toxic Vacuolation Trace, Platelet Estimate Normal, Anisocytosis Trace 08/29/20 17:43: Sodium 142, Plasma Sodium 142, Potassium 3.8, Chloride 103, Carbon Dioxide 29.3, Anion Gap 13.5, BUN 16, Creatinine 0.83, Est GFR (Non-Af Amer) 97, BUN/Creatinine Ratio 19.3, Random Glucose 101, Calcium 8.4, Calcium Adj for Albumin 8.8, Total Bilirubin 0.6, AST 37, ALT 31, Alkaline Phosphatase 142, C-Reactive Prot, Quant 6.5 H, B-Natriuretic Peptide 1135 H, Total Protein 6.6, Albumin 3.1 L, Amylase 33, Lipase 48 L 08/29/20 17:43: Lactic Acid, Venous 1.3 08/29/20 17:43: D-Dimer 0.80 H 08/29/20 18:29: Urine Color Yellow, Urine Appearance Cloudy, Urine pH 6.0, Ur Specific [place] 1.020, Urine Protein Negative, Urine Glucose (UA) Negative, Urine Ketones 5, Urine Blood 5 H, Urine Nitrate Negative, Urine Bilirubin Nega tive, Urine Urobilinogen Normal, Ur Leukocyte Esterase 25 H, Urine RBC 0-5, Urine WBC 0-5, Ur Epithelial Cells Trace, Urine Bacteria 4+ H, Urine Culture Comments Culture to follow 08/29/20 19:41: SARS-CoV-2 (PCR) Not detected 08/30/20 06:18: WBC 17.7 H D, RBC 4.31 L, Hgb 13.7, Hct 43.7, MCV 101.4 H, MCH 31.8 H, MCHC 31.4 L, RDW 14.0, Plt Count 162, MPV 10.5, Immature Gran % (Auto) 0.80 H, Immature Gran # (Auto) 0.14 H, Neutrophils % 88.9 H, Lymphocytes % 4.3 L, Monocytes % 5.6, Eosinophils % 0.2, Basophils % 0.2, Nucleated RBC % 0.0, Neutrophils # 15.8 H, Lymphocytes # 0.76 L, Monocytes # 1.0, Eosinophils # 0.0, Absolute Basophils 0.0 08/30/20 06:18: Sodium 141, Plasma Sodium 141, Potassium 3.7, Chloride 107 H, Carbon Dioxide 26.4, Anion Gap 11.3, BUN 14, Creatinine 0.71, Est GFR (Non-Af Amer) 116, BUN/Creatinine Ratio 19.7, Random Glucose 116 H, Calcium 7.3 L, Calcium Adj for Albumin 8.0 L, Total Bilirubin 0.5, AST 26, ALT 24, Alkaline Phosphatase 117, Total Protein 6.1 L, Albumin 2.7 L 08/31/20 06:20: WBC 10.0 D, RBC 4.26 L, Hgb 13.6, Hct 43.4, MCV 101.9 H, MCH 31.9 H, MCHC 31.3 L, RDW 14.2 H, Plt Count 163, MPV 10.2, Immature Gran % (Auto) 0.30, Immature Gran # (Auto) 0.03, Neutrophils % 66.6, Lymphocytes % 19.0 L, Monocytes % 11.0 H, Eosinophils % 2.6, Basophils % 0.5, Nucleated RBC % 0.0, Neutrophils # 6.7 H, Lymphocytes # 1.91, Monocytes # 1.1 H, Eosinophils # 0.3, Absolute Basophils 0.1 08/31/20 06:20: Sodium 142, Plasma Sodium 142, Potassium 3.7, Chloride 105, Carbon Dioxide 27.0, Anion Gap 13.7, BUN 10, Creatinine 0.80, Est GFR (Non-Af Amer) 101, BUN/Creatinine Ratio 12.5, Random Glucose 102, Calcium 7.9, Calcium Adj for Albumin 8.5, Total Bilirubin 0.5, AST 22, ALT 21, Alkaline Phosphatase 110, Total Protein 6.1 L, Albumin 2.8 L 08/31/20 06:20: Procalcitonin 1.44 H 09/01/20 06:40: Sodium 142, Plasma Sodium 142, Potassium 3.5, Chloride 104, Carbon Dioxide 28.9, Anion Gap 12.6, BUN 10, Creatinine 0.85, Est GFR (Non-Af Amer) 94, BUN/Creatinine Ratio 11.8, Random Glucose 109, Calcium 7.9, Calcium Adj for Albumin 8.5, Total Bilirubin 0.9, AST 19, ALT 15 L, Alkaline Phosphatase 100, Total Protein 6.2, Albumin 2.8 L 09/01/20 06:40: WBC 10.8 H, RBC 4.34 L, Hgb 13.4 L, Hct 43.9, MCV 101.2 H, MCH 30.9, MCHC 30.5 L, RDW 13.9, Plt Count 169, MPV 9.9, Immature Gran % (Auto) 0.50 H, Immature Gran # (Auto) 0.05 H, Neutrophils % 61.6, Lymphocytes % 21.2, Monocytes % 13.0 H, Eosinophils % 3.4 H, Basophils % 0.3, Nucleated RBC % 0.0, Neutrophils # 6.7 H, Lymphocytes # 2.29, Monocytes # 1.4 H, Eosinophils # 0.4, Absolute Basophils 0.0 09/02/20 06:15: Sodium 142, Plasma Sodium 142, Potassium 3.7, Chloride 105, Carbon Dioxide 29.9, Anion Gap 10.8, BUN 11, Creatinine 0.90, Est GFR (Non-Af Amer) 88, BUN/Creatinine Ratio 12.2, Random Glucose 107, Calcium 7.7 L, Calcium Adj for Albumin 8.5, Total Bilirubin 0.6, AST 26, ALT 20, Alkaline Phosphatase 93, Total Protein 6.2, Albumin 2.6 L 09/02/20 06:15: WBC 10.7 H, RBC 4.46 L, Hgb 14.0, Hct 44.9, MCV 100.7 H, MCH 31.4 H, MCHC 31.2 L, RDW 13.7, Plt Count 178, MPV 10.0, Immature Gran % (Auto) 0.40, Immature Gran # (Auto) 0.04 H, Neutrophils % 60.4, Lymphocytes % 20.6, Monocytes % 9.9 H, Eosinophils % 8.2 H, Basophils % 0.5, Nucleated RBC % 0.0, Neutrophils # 6.5 H, Lymphocytes # 2.20, Monocytes # 1.1 H, Eosinophils # 0.9 H, Absolute Basophils 0.1 09/03/20 07:00: Sodium 141, Plasma Sodium 141, Potassium 3.7, Chloride 107 H, Carbon Dioxide 29.5, Anion Gap 8.2, BUN 11, Creatinine 0.72, Est GFR (Non-Af Amer) 114 D, BUN/Creatinine Ratio 15.3, Random Glucose 106, Calcium 8.3, Calcium Adj for Albumin 9.1, Total Bilirubin 0.5, AST 24, ALT 19, Alkaline Phosphatase 92, Total Protein 6.2, Albumin 2.6 L 09/03/20 07:00: WBC 9.1, RBC 4.42 L, Hgb 13.9, Hct 44.4, MCV 100.5 H, MCH 31.4 H, MCHC 31.3 L, RDW 13.4, Plt Count 194, MPV 9.9, Immature Gran % (Auto) 0.30, Immature Gran # (Auto) 0.03, Neutrophils % 52.8, Lymphocytes % 27.9, Monocytes % 10.1 H, Eosinophils % 8.5 H, Basophils % 0.4, Nucleated RBC % 0.0, Neutrophils # 4.8, Lymphocytes # 2.54, Monocytes # 0.9, Eosinophils # 0.8 H, Absolute Basophils 0.0 Discharge Location: [facility] Disposition: SNF Condition: Stable Level of Care: SNF Discharge Activity: Activity as tolerated Discharge Diet: General/regular food [facility] Therapy: Physical Therapy, Occupation Therapy, Speech Therapy Referrals: Leticia Franklin FNP [Primary Care Provider] - Complete Home Medications List: Complete Home Medication List: Aspirin [Aspirin Enteric Coated] 650 mg PO QID PRN 03/02/17 nystatin 100,000 unit/gram topical powder 1 applic TP TID PRN 10/27/17 docusate sodium 100 mg tablet 100 mg PO DAILY 12/23/17 bisacodyl 5 mg tablet,delayed release 5 mg PO DAILY PRN #7 tab 02/25/18 Chlorhexidine Gluconate [Peridex 0.12%] 15 ml MM BID 04/14/18 polyethylene glycol 3350 17 gram/dose oral powder 17 g PO DAILY #238 g 06/07/18 amoxicillin 500 mg capsule 2,000 mg PO ONCE cap 07/08/18 fluticasone furoate 100 mcg-vilanterol 25 mcg/dose inhalation powder 1 inh IH DAILY #28 ea 01/12/19 ipratropium 20 mcg-albuterol 100 mcg/actuation mist for inhalation 1 puff IH QID PRN g 03/17/19 cholecalciferol (vitamin D3) 125 mcg (5,000 unit) capsule 125 mcg PO DAILY #30 cap 08/25/19 gabapentin 400 mg capsule 400 mg PO HS #30 cap 12/06/19 meloxicam 7.5 mg tablet 7.5 mg PO DAILY #30 tab 06/20/20 atorvastatin 20 mg tablet 20 mg PO HS #30 tab 07/03/20 metoprolol succinate 25 mg tablet,extended release 24 hr 25 mg PO DAILY #30 tab 07/03/20 acetaminophen 325 mg tablet 650 mg PO BID #120 tab 07/04/20 clonazepam 1 mg tablet 3 mg PO HS #90 tab 07/25/20 modafinil 100 mg tablet 100 mg PO DAILY #1 tab 07/29/20 cyanocobalamin (vitamin B-12) 1,000 mcg tablet 1,000 mcg PO DAILY #1 tab 08/15/20 Aspirin 625 mg PO HS 08/30/20 Cholecalciferol (Vitamin D3) [Vitamin D3] 125 mcg PO DAILY 08/30/20 Forms: Patient Portal Registration
[2020-09-03 15:58] VITALS: BP 132/88
== END 2020-09-03 13:43 | DRG 871 ==
LOC: ER 16:29 → MS 19:38
PROVIDERS: ADMIT Internal Medicine; ATTEND Internal Medicine
DX: A41.9 Sepsis, unspecified organism; I48.91 Unspecified atrial fibrillation; Z86.19 Personal history of other infectious and parasitic diseases; J18.9 Pneumonia, unspecified organism; J81.1 Chronic pulmonary edema; N39.0 Urinary tract infection, site not specified; I27.20 Pulmonary hypertension, unspecified; F41.9 Anxiety disorder, unspecified; J44.9 Chronic obstructive pulmonary disease, unspecified; G35 Multiple sclerosis